=== PATIENT | male | born 1955 | race Caucasian/White ===

== ENCOUNTER → 2019-06-09 | Outpatient (CLI) | payer OTHER ==
[~2019-06-09] VITALS: Ht 167.6 cm; Wt 93.0 kg
[~2019-06-09] MED LIST: ASPIR 8181 MG PO; BACLOFEN 10MG T10 MG PO; BENICAR HCT 401 EACH PO; CENTRUM SILVER1 EAC2 PO; HYDROCODONE-AP1 EAC6 PO; IBUPROFEN 200200 M1 PO; IRON325 PO; LIPITOR 20 MG T20 M1 PO; LYRICA 75 MG CA75 MG PO; NEURONTIN 300300 M1 PO; NEXIUM40 MG PO; NORTRIPTYLINE H25 M3 PO; PERCOCET PO; PLAVIX 75 MG TA75 M1 PO; ROXICODONE5 MG PO; TOPROL XL25 MG PO; VIAGRA25 MG PO; ZETIA10 MG PO
[2019-06-09 14:12] VITALS: BP 116/75
--- NOTE | 2019-06-09 14:31 | NUR ---
Pain Clinic Assessment: 1. History of Osteoarthritis: NECK History of Rheumatoid Arthritis: Not Applicable 2. Height: 5 ft. 6 in. 167.6 cm. Weight: 205.0 lb. oz. 92.988 kg. Patient's BMI: 33.1 3. Vital Signs: BP: 116/75 Pulse: 89 Resp: 16 Temp: 02 Sat: 100 ECG Mon: 4. Pain Intensity: 6 5. Fall Risk: Dizziness: N Needs help standing or walking: N Fallen in the last 3 months: N Fall risk comments: 6. Patient on Blood Thinner: PLAVIX 7. History of Hypertension: Y 8. Opioid Therapy greater than 6 weeks: N Opiate Contract Signed: 9. Risk Assessment Tool Provided: LOW RISK 02/01 10. Functional Assessment Tool: 11. Recreational Drug Use: Never Drug Type: Tobacco Use: Current Every Day Smoker Tobacco Type: Cigarettes Amount or Packs/day: 1 1/2 How Many Years: 50 Alcohol Use: Yes Frequency: Monthly Quant: 1-2
--- NOTE | 2019-06-16 07:48 | HPC ---
[facility] [address] [address] PAIN MANAGEMENT CONSULTATION Name: HEIDE HEARD Room #: REG CLShahab Hattie.#: [id number] Admission: 06/09/19 ������������������ Attend Phys: Ferny Menendez DO Discharge: ������������������ Date of : 53 Report #: [id number] THIS REPORT FOR: //name// CC: JORGE LUIS Bustillos DATE OF SERVICE: 06/09/2019 REFERRING PHYSICIAN: Jorge Luis Diez D.O. in [place]. CHIEF COMPLAINT: Neck pain, bilateral upper extremity pain and paresthesias. HISTORY OF PRESENT ILLNESS: As you know, the patient is a 63-year-old male who reports longstanding history of neck pain, bilateral upper extremity pain with paresthesias. The patient indicates pain level of 6/10. He states his pain is burning, aching, numbness and tingling in sensation. It involves the neck and bilateral upper extremities. He has had symptoms for years. He denies new injury or trauma that may have led to symptom occurrence. He states the pain began somewhere in 2013. He has sought evaluation through Neurosurgery due to ongoing pain issues. He has undergone MRI of the cervical spine, which shows multilevel cervical spinal stenosis and neural foraminal stenosis. He was advised that surgical options would likely be necessary. He was seeking evaluation for options for treatment. He was referred to our clinic to discuss those options to address cervical radiculopathy. The patient indicates pain is steady, describes the pain as burning and aching, places current pain score 6/10, daily average at 6/10, worst pain has been is 9/10. The patient states that his pain is exacerbating with "turning too far." He is also noted it with lying down. His pain is improved with medications and this is only transiently. He has been referred to our service to discuss treatment options for cervical radiculopathy. PAST MEDICAL HISTORY: 1. Hypertension. 2. Coronary artery disease requiring chronic anticoagulation. 3. Degenerative joint disease. 4. Osteoarthritis. 5. Dyslipidemia. 6. Chronic cervical radiculopathy. PAST SURGICAL HISTORY: 1. Coronary artery stenting in 1999. 2. Appendectomy. 3. Eye surgery. [facility] [address] [place] [address] PAIN MANAGEMENT CONSULTATION Name: HEIDE HEARD [id number] Admission: 06/09/19 ������������������ Attend Phys: Ferny Menendez DO Discharge: ������������������ Date of : 53 Report #: [id number] SOCIAL HISTORY: The patient smokes 1-1/2 packs of tobacco per day, has done so for 50 years. He denies IV or illicit drug use. Admits to an occasional alcohol beverage. He is employed as an business information manager. He is working, not receiving workmen's compensation nor is trying to obtain disability benefits. He is not in litigation in regards to pain. He is unaccompanied today. REVIEW OF SYSTEMS: Positive for frequent and recurrent headaches, wearing corrective eyewear, cataracts, nosebleeds, cardiovascular disease, status post percutaneous stenting and chronic anticoagulation, frequent urination, nocturia, incontinence and dribbling to urine, sexual difficulty, numbness and tingling sensations, neck pain, bilateral upper extremity pain, right greater than left. All other review of systems negative per 12-point review of systems other than those listed in history of present illness. Pain impact score 24/70 indicating mild to moderate interference of daily activities secondary to pain. ALLERGIES: SULFA. CURRENT MEDICATIONS: Ferrous sulfate 325 mg per day, multivitamin 1 tab per day, Percocet 5/325 three times a day p.r.n. pain, olmesartan, hydrochlorothiazide 40/12.5 mg once a day, ibuprofen 200 mg 3 times a day, aspirin 81 mg per day, metoprolol 25 mg twice a day, atorvastatin 20 mg once a day, Plavix 75 mg per day. IMAGING: MRI cervical spine obtained on 05/02/2018 shows multilevel cervical spinal stenosis noted at C4-C5, C5-C6, C6-C7 and C7-T1. This is noted to be moderate to severe at all levels. There is also noted bilateral neural foraminal stenosis to moderate to severe at C4-C5, C5-C6, C6-C7. PQRS: The patient has osteoarthritic changes of the cervical spine, lumbar spine, bilateral knees, no rheumatoid arthritis. He is placing pain intensity at 6/10. He has not fallen last 3 months. He is on Plavix. He is treated for hypertension. He is on chronic opioids, but is reported as a low to moderate risk of opioid addiction potential. Pain impact score is 24/70 indicating mild to moderate interference of daily activities secondary to pain. PHYSICAL EXAMINATION: VITAL SIGNS: Blood pressure 116/75, pulse 89, respiratory rate 16 and unlabored. The patient is 100% on room air. Height 5 feet 6 inches tall, weight 205 pounds, BMI calculated 33.1. GENERAL: Well-developed, well-nourished, well-hydrated exogenously obese 63-year-old male appearing stated age, placing current pain score at 6/10. HEENT: Normocephalic, atraumatic. Pupils equal, round, reactive to light. Extraocular muscles are intact. Sclerae nonicteric without injection. [address] [place] [address] PAIN MANAGEMENT CONSULTATION Name: HEIDE HEARD Room #: REG [facility].#: [id number] Admission: 06/09/19 ������������������ Attend Phys: Ferny Menendez DO Discharge: ������������������ Date of : 53 Report #: [id number] NEUROLOGIC: Cranial nerves 2-12 grossly intact. Speech fluent. The patient deemed a fair historian. LUNGS: Clear, no wheeze, rhonchi, or rales. CARDIOVASCULAR: Regular. No appreciable gallop, no rub. ABDOMEN: Soft, obese, normoactive bowel sounds. EXTREMITIES: Show no clubbing, no cyanosis, and no edema. MUSCULOSKELETAL: Palpatory tenderness is noted over the paraspinal musculature of cervical spine. No spinous process tenderness. Cervical provocation testing is met with moderate restriction of motion bilaterally right greater than left. Cervical lateral flexion causes positive neuropathic symptoms on the right, negative on the left. Spurling's positive on the right, negative left. Upper extremity strength appears symmetrical 5/5. Muscle bulk and tone appears symmetrical. He is intact to light touch from C5-T1 dermatomes with only minimal light touch sensation changes on the C8 dermatome on the right when compared to left. ASSESSMENT: 1. Cervical radiculopathy. 2. Cervical spinal stenosis. 3. Neural foraminal stenosis of the cervical spine. 4. Displacement of cervical intervertebral disk with radiculopathy. 5. Cervical spondylosis with radiculopathy. 6. Chronic intractable pain. PLAN: 1. The patient has been referred to our service to discuss treatment options for what appears to be cervical radiculopathy. The patient has multiple levels of cervical spinal stenosis starting at the C4-C5 and continuing through the C7-T1 level. These are all classified as moderate to severe. He also has neural foraminal stenosis, most significant at C4-C5, C5-C6 and C6-C7 with those being classified as moderate to severe. He has been seen by Neurosurgery and I advised that surgical options will be ultimately necessary. He has chosen to seek further treatment and/or more conservative fashion in hopes of improving pain initially. If this is ineffective, then look forward to potential surgical options. He has been referred to our clinic by his PCP, Dr. Diez for evaluation. Based on today's physical exam and history, he provides the distribution of symptoms and the quality and intensity of pain along with the findings of his MRI. It does appear he is suffering from central canal and neural foraminal stenosis of the cervical spine causing cervical radiculopathy. We discussed the following treatment options for potential therapeutic benefit. The patient was advised that physical therapy, stretching exercises and strengthening techniques along with traction could be quite beneficial in alleviating some of his symptoms. Given the neural foraminal condition, traction would certainly assist in this issue. This will also potentially improve the patient's mobility and reduce his overall pain. We discussed [address] [address] PAIN MANAGEMENT CONSULTATION Name: HEIDE HEARD Room #: REG NARINDER Serrano#: [id number] Admission: 06/09/19 ������������������ Attend Phys: Ferny Menendez DO Discharge: ������������������ Date of : 54 Report #: [id number] medication management, increasing neuropathic pain medication, which based on the patient's description have all been suboptimal in therapeutic benefit. We discussed the lack of efficacy noted with opioids and do not recommend an opioid medication to be consistently utilized and the patient even indicates that he is not receiving much benefit with this therapy. We discussed cervical epidural injection under fluoroscopic guidance for which the patient was referred to our clinic and he has also requested surgical evaluation with a referral requested to Neurosurgery. After reviewing the risks and benefits of all the proposed treatment options and the lack of efficacy with other treatments, the patient has chosen to move forward with a cervical epidural injection and to make adjustments in his neuropathic pain medication. 2. The patient was advised that third alliance party payer restrictions require the authorization be obtained before the patient could be able to undergo cervical epidural injection. This authorization process could take anywhere from 4-7 working days, will begin that process immediately. Once we have achieved authorization, we will contact the patient. He will then need to schedule the appointment 7 days in advance of the approval date to be able to come off his Plavix for 7 days as per the [employer] guidelines. The patient will need to be off Plavix for 7 days. He will need to gain clearance from the prescribing physician to come off this medication safely. If he is able to come off the medication, we will then schedule the patient 1 week after our approval from his third alliance party payer to undergo the first in series of cervical epidural injections. We will keep the patient apprised of our progress of preauthorization. 3. The patient and I did discuss neuropathic medications. He has trialled gabapentin and Lyrica in the past. Based on the patient's recollection, he was on extremely low dose of gabapentin. Thus, subtherapeutic in its response. We recommend a rapid escalation of his medication to reach efficacious levels or side effects he cannot tolerate. We will trial the patient on a pack of Gralise starting at 300 mg dose, then titrate the medication as directed. He will be at 1800 mg in 15 days assuming he is not noticing improvement in symptoms at lower dosing or side effects he cannot tolerate. He was given a titration pack to take as directed. He was advised to be no side effects to medication and reduced to the dose prior to the side effects and continue the medication after contacting our clinic. If he notes no improvement and no side effects, continue de-escalation of medication. He was given a sample pack for the next 15 days. 4. The patient indicates today that he is taking oxycodone being provided by his primary care physician. He takes 3 oxycodone per day. When I asked whether or not this medication was beneficial, he reports that it does "take the edge off." We have noted that opioid medications have little or no benefit with neuropathic pain. The patient can certainly remain on this medication that he is receiving through his PCP and we recommend that he continued this treatment if necessary through his primary care physician. Given his lack of response to this medication, we would not recommend that he continue on this therapy and thus we will not be offering to take over this treatment course. Opioid medications as you are aware to be used for a very short period of time. It is [facility] [address] [place] [address] PAIN MANAGEMENT CONSULTATION Name: HEIDE HEARD Room #: REG CLI Maggie#: [id number] Admission: 06/09/19 ������������������ Attend Phys: Ferny Menendez DO Discharge: ������������������ Date of : 53 Report #: [id number] not indicated as a long-term treatment option. 5. The patient has requested and we have provided a referral to neurosurgery. The patient is being referred to Dr. Moose Contreras for cervical radiculopathy secondary to multiple sites of cervical spinal stenosis. The patient was given the referral, today he can contact Dr. Contreras's office to establish an appointment. 6. We will see the patient back in followup visit once we have achieved authorization for the patient to undergo a cervical epidural injection and he has been off his Plavix for 7 days to undergo the procedure. 7. We wish to thank the referring physician, Dr. Jorge Luis Diez for the referral of patient to our clinic. We will keep you apprised of his response to treatment as we address his cervical radiculopathy. Again, we wish to thank you for the opportunity to see the patient in consultation. ��������������������������������������������� <ELECTRONICALLY SIGNED> ���������������������������������������� By: Ferny Menendez DO ��������������������������������������������� 06/16/19 [id number] Ferny Menendez DO /nt
== END ==
LOC: PAIN 06:57
DX: M47.22 Other spondylosis with radiculopathy, cervical region (principal); M48.02 Spinal stenosis, cervical region; M50.10 Cervical disc disorder with radiculopathy, unspecified cervical region; G89.4 Chronic pain syndrome; Z79.899 Other long term (current) drug therapy

== ENCOUNTER → 2019-06-30 | Outpatient (CLI) | payer OTHER ==
[~2019-06-30] VITALS: Ht 167.6 cm; Wt 95.2 kg
--- NOTE | ~2019-06-30 | HPC ---
[facility] [place] [address] PAIN MANAGEMENT CONSULTATION Name: HEIDE HEARD Room #: REG NARINDER Maggie#: [id number] Admission: 06/30/19 ������������������ Attend Phys: Ferny Menendez DO Discharge: ������������������ Date of : 53 Report #: [id number] THIS REPORT FOR: //name// CC: Elise Ansari DATE OF SERVICE: 06/30/2019 REFERRING PHYSICIAN: Elise Diez DO CHIEF COMPLAINT: Neck pain, bilateral upper extremity pain with paresthesias. HISTORY OF PRESENT ILLNESS: As you know, the patient is a 63-year-old male who reports longstanding history of neck pain, bilateral upper extremity pain with paresthesias. He was seen in consultation per the request of Dr. Diez on 06/09/2019, diagnosed with cervical radiculopathy, cervical spinal stenosis, neural foraminal stenosis of the cervical spine, displacement of a cervical intervertebral disk with radicular symptoms, cervical spondylosis with radiculopathy. We discussed at that visit the treatment options available and he chose to undergo a cervical epidural injection under fluoroscopic guidance for which he returns today having been off his Plavix for 7 days after receiving authorization to be able to come off the medication from his primary care physician and sales recruiter. He returns with a pain level of 6-7/10 to undergo cervical epidural injection under fluoroscopic guidance. ALLERGIES: SULFA and ALOE VERA. CURRENT MEDICATIONS: Ferrous sulfate, multivitamin, oxycodone, olmesartan, hydrochlorothiazide, ibuprofen, aspirin, metoprolol, atorvastatin, Plavix. SOCIAL HISTORY: The patient smokes 1-1/2 packs of tobacco per day and has done so for 50 years. He denies IV or illicit drug use, admits to alcohol consumption on an every other day basis. He is working, not receiving workmen's compensation, unaccompanied today. IMAGING: No new imaging available. PHYSICAL EXAMINATION: VITAL SIGNS: Blood pressure 110/72, pulse 72 and respiratory rate 18 and unlabored. The patient is 97% on room air. Height 5 feet 6 inches tall, weight 209.8 pounds, BMI calculated at 33.9. GENERAL: Well-developed, well-nourished, well-hydrated exogenously obese 63-year-old male appearing stated age, pain is rated today at 6-7/10. HEENT: Normocephalic, atraumatic. Pupils equal, round, reactive to light. EXTREMITIES: Show no clubbing, no cyanosis, and no edema. [address] [address] PAIN MANAGEMENT CONSULTATION Name: HEIDE HEARD Room #: REG CL Hattie.#: [id number] Admission: 06/30/19 ������������������ Attend Phys: Ferny Menendez DO Discharge: ������������������ Date of : 53 Report #: [id number] MUSCULOSKELETAL: Upper extremity strength appears symmetrical 5/5. He remains positive for Spurling's test on the right, negative left. Muscle bulk and tone appears equal and symmetrical in comparing left upper extremity to right. Cervical provocation testing is met with moderate restriction of motion bilaterally, right greater than left. ASSESSMENT: 1. Cervical radiculopathy. 2. Cervical spinal stenosis. 3. Neural foraminal stenosis of the cervical spine. 4. Displacement of cervical intervertebral disk with radiculopathy. 5. Cervical spondylosis with radiculopathy. 6. Chronic intractable pain. PLAN: 1. The patient has returned today in followup visit to undergo the first in a series of cervical epidural injections under fluoroscopic guidance. He has received clearance from his PCP and sales recruiter to come off the Plavix in preparation for today's procedure. He has been off the Plavix for the past 7 days. The patient and I discussed today the risks and benefits of a cervical epidural injection. These risks include but are not necessarily limited to bleeding, bruising, infection, worsening pain, no relief of pain, also risk of temporary or permanent muscle weakness, temporary or permanent nerve damage, possible paralysis, post-dural puncture headache and , the patient states he understood and wished to proceed. 2. No medication changes made at today's visit. The patient will continue current medical therapy as previously prescribed. 3. We will see the patient back in followup visit for next in the series of cervical epidural injections under fluoroscopic guidance and to discuss medication management if necessary. PROCEDURE NOTE DESCRIPTION OF PROCEDURE: Cervical epidural steroid injection under fluoroscopic guidance. This is the first procedure of the first series that the patient is undergoing. After obtaining written consent, the patient was taken back to the fluoroscopy suite and placed in a prone position with separate pillows under chest and forehead to decrease cervical lordosis. The skin overlying the cervical area was prepped and draped in an aseptic fashion. The C7-T1 vertebral interspace was identified by AP fluoroscopy. The skin and subcutaneous tissue overlying the target site of injection was anesthetized using 3 mL of 1% lidocaine. A 20-guarge 3-1/2-inch Tuohy needle was advanced under fluoroscopic guidance [address] [address] PAIN MANAGEMENT CONSULTATION Name: HEIDE HEARD Room #: REG CLI [facility]#: [id number] Admission: 06/30/19 ������������������ Attend Phys: Ferny Menendez DO Discharge: ������������������ Date of : 53 Report #: [id number] toward the epidural space using a midline approach. The epidural space was identified using a loss of resistance to air technique. After negative aspiration for heme or cerebrospinal fluid, a total of 1 mL of Omnipaque was injected. A cervical epidurogram was confirmed using AP and oblique fluoroscopy. After negative aspiration for heme or cerebrospinal fluid, 5 mL of a solution containing 2 mL, 40 mg per mL, 80 mg total triamcinolone, 3 mL of lidocaine 1% was injected in increments. Contrast spread was noted from posterior epidural space. The needle was then retracted approximately prison and the needle track was flushed with 1 mL of 1% lidocaine. There were no apparent new sensory deficits in the upper extremities present following the procedure. A sterile bandage was placed over the injection site. The heart rate, pulse oximetry and blood pressure were continuously monitored after the procedure. There were no apparent complications. The patient tolerated the procedure well and was carefully escorted in the recovery room in stable condition. After meeting discharge criteria, the patient was discharged home. ��������������������������������������������� ���������������������������������������� By: ��������������������������������������������� [id number] Ferny Menendez DO /nt
[2019-06-30 12:53] VITALS: BP 110/72
--- NOTE | 2019-06-30 13:01 | NUR ---
Pain Clinic Assessment: 1. History of Osteoarthritis: NECK History of Rheumatoid Arthritis: Not Applicable 2. Height: 5 ft. 6 in. 167.6 cm. Weight: 209.8 lb. oz. 95.165 kg. Patient's BMI: 33.9 3. Vital Signs: BP: 110/72 Pulse: 72 Resp: 18 Temp: 02 Sat: 97 ECG Mon: 4. Pain Intensity: 6-7 5. Fall Risk: Dizziness: N Needs help standing or walking: N Fallen in the last 3 months: N Fall risk comments: 6. Patient on Blood Thinner: PLAVIX 7. History of Hypertension: Y 8. Opioid Therapy greater than 6 weeks: N Opiate Contract Signed: 9. Risk Assessment Tool Provided: LOW RISK 02/01 10. Functional Assessment Tool: 11. Recreational Drug Use: Never Drug Type: Tobacco Use: Current Every Day Smoker Tobacco Type: Cigarettes Amount or Packs/day: 1.5 How Many Years: 50 Alcohol Use: Yes Frequency: Weekly Quant: 3
== END | disposition home or self-care (01) ==
LOC: PAIN 06:55
DX: M50.10 Cervical disc disorder with radiculopathy, unspecified cervical region (principal); M48.02 Spinal stenosis, cervical region; M47.22 Other spondylosis with radiculopathy, cervical region; G89.29 Other chronic pain; F17.210 Nicotine dependence, cigarettes, uncomplicated; Z88.2 Allergy status to sulfonamides; Z88.8 Allergy status to other drugs, medicaments and biological substances; Z79.899 Other long term (current) drug therapy; Z98.890 Other specified postprocedural states

== ENCOUNTER → 2019-07-21 | Outpatient (CLI) | payer OTHER ==
[~2019-07-21] VITALS: Ht 167.6 cm; Wt 94.6 kg
[2019-07-21 12:41] VITALS: BP 116/70
--- NOTE | 2019-07-21 12:56 | NUR ---
Pain Clinic Assessment: 1. History of Osteoarthritis: NECK History of Rheumatoid Arthritis: Not Applicable 2. Height: 5 ft. 6 in. 167.6 cm. Weight: 208.6 lb. oz. 94.620 kg. Patient's BMI: 33.7 3. Vital Signs: BP: 116/70 Pulse: 86 Resp: 16 Temp: 02 Sat: 95 ECG Mon: 4. Pain Intensity: 5 5. Fall Risk: Dizziness: N Needs help standing or walking: N Fallen in the last 3 months: N Fall risk comments: 6. Patient on Blood Thinner: PLAVIX 7. History of Hypertension: Y 8. Opioid Therapy greater than 6 weeks: N Opiate Contract Signed: 9. Risk Assessment Tool Provided: LOW RISK 02/01 10. Functional Assessment Tool: 11. Recreational Drug Use: Never Drug Type: Tobacco Use: Current Every Day Smoker Tobacco Type: Cigarettes Amount or Packs/day: 1.5 How Many Years: 50 Alcohol Use: Yes Frequency: Weekly Quant: 3
--- NOTE | 2019-07-22 07:46 | HPC ---
[facility] [address] [place] [address] PAIN MANAGEMENT CONSULTATION Name: HEIDE HEARD Room #: REG Shahab Serrano#: [id number] Admission: 07/21/19 Attend Phys: Ferny Menendez DO Discharge: Date of : 53 Report #: [id number] THIS REPORT FOR: //name// CC: Elise Menendez DATE OF SERVICE: 07/21/2019 REFERRING PHYSICIAN: CHIEF COMPLAINT: Neck pain, bilateral lower extremity pain. HISTORY OF PRESENT ILLNESS: As you know, the patient is a 63-year-old male who reports longstanding history of neck pain, bilateral upper extremity pain with paresthesias. He was seen in consultation per the request of Dr. Diez on 06/09/2019, diagnosed with cervical radiculopathy secondary to cervical spinal stenosis. He underwent a cervical epidural injection under fluoroscopic guidance at the second visit with good and prolonged benefit. He is now placing pain no greater than 5/10. He states the pain is burning, aching, numbness and tingling when describing symptoms. He reports 60% improvement in overall symptoms with the epidural injection. He returns today requesting refill of his Percocet medication. He is currently is his Plavix, which precludes us from providing next in the series of epidural injections. He has requested refill of medications at this juncture and reports no side effects. He returns for refill of medications for this next 2 months. ALLERGIES: SULFA and ALOE VERA. CURRENT MEDICATIONS: Ferrous sulfate, multivitamin, oxycodone, olmesartan, hydrochlorothiazide, ibuprofen, aspirin, metoprolol, atorvastatin and Plavix. SOCIAL HISTORY: The patient continues to smoke 1-1/2 packs of tobacco per day and has done so for 50+ years. Denies IV or illicit drug use. Admits to alcohol consumption on a daily basis. He is working, not receiving workmen's compensation, unaccompanied today. IMAGING: No new imaging available. PHYSICAL EXAMINATION: VITAL SIGNS: Blood pressure 116/70, pulse 86, respiratory rate 16 and unlabored. The patient is 95% on room air. Height 5 feet 6 inches tall, weight 280 pounds, BMI calculated 33.7. GENERAL: Well-developed, well-nourished, well-hydrated exogenously obese 63-year-old male appearing stated age, pain is rated at 5/10. HEENT: Normocephalic, atraumatic. Pupils equal, round, reactive to light. Extraocular muscles are intact. [address] [address] PAIN MANAGEMENT CONSULTATION Name: HEIDE HEARD Room #: REG [facility].#: [id number] Admission: 07/21/19 Attend Phys: Ferny Menendez DO Discharge: Date of : 53 Report #: [id number] EXTREMITIES: Show no clubbing, no cyanosis, and no edema. MUSCULOSKELETAL: Upper extremity strength is symmetrical 5/5, intact to light touch from C5-T1 dermatomes. Spurling's test is positive. Muscle bulk and tone symmetrical in upper extremities. ASSESSMENT: 1. Cervical radiculopathy. 2. Spinal stenosis of the cervical spine. 3. Neural foraminal stenosis of the cervical spine. 4. Displacement of a cervical intervertebral disk with radiculopathy. 5. Cervical spondylosis with radiculopathy. 6. Chronic intractable pain. PLAN: 1. The patient returns today in followup visit having noted a 60% improvement in overall pain with a cervical epidural injection provided at last visit. At this time, the patient wishes to delay next in the series of cervical epidural injections despite the elevated pain level of 5/10 today. The patient has not stopped his Plavix in preparation for today's procedure and wishes to delay potentially end of August before undergoing the next in the series. We will make ourselves available for that date, so when the patient is ready to undergo the procedure we can provide that at that time. If his pain does return, he is to stop his Plavix in preparation for the procedure. He will have to be off the Plavix for 7 days. This needs to be cleared through the prescribing physician and letter needs to be sent to our clinic indicating as such. 2. We have agreed to continue the patient on medication while he is undergoing interventional treatments. Once we have completed our treatment options, he will be returning to his PCP for continuation of medication management. We have provided the patient with the following prescriptions today. We reviewed the fact that opiate medications are being used to provide analgesia adequate to support activities of daily living, not attempting to achieve a specific pain score on the 0-10 Visual Analog Scale. The current opiate medications are providing sufficient analgesia to allow the patient to participate in activities of daily living. The patient is not exhibiting any aberrant behavior suggestive of drug diversion. The patient is not having any adverse reactions to medications. The patient is not suffering from daytime somnolence or mental acuity changes. The patient is managing opiate-induced constipation with appropriate [id number] agents and dietary considerations. The patient was counseled on concern for caution with operating a motor vehicle while using opiate medications. A physical exam was performed and the patient's functional status was evaluated. All patients with back pain were advised against the bed rest greater than 4 days and were advised to return to normal activities. Pain score assessment was noted and the treatment plan was reviewed with the patient. All current [facility] [address] [place] [address] PAIN MANAGEMENT CONSULTATION Name: HEIDE HEARD Room #: REG TONIAShahab Kuhn.#: [id number] Admission: 07/21/19 Attend Phys: Ferny Menendez DO Discharge: Date of : 53 Report #: [id number] medications, both prescribed and OTC were reviewed and reconciled on the electronic medical record. Tobacco screening was accomplished and smoking cessation was advised when indicated. BMI was noted and diet/exercise modification was recommended for all patients following outside normal parameters. I reviewed with the patient today their responsibilities to safeguard prescription medications, reviewed their responsibility to utilize medications only as prescribed by the physician. They are to seek and receive pain medications only from 1 physician group ( [facility]). They are to use 1 pharmacy and keep the clinic informed if they change pharmacies. Their responsibilities include making followup visits in a timely fashion and to avoid abrupt discontinuation of medication usage. Their responsibilities further include bringing their medications (bottles from the pharmacy with residual pills) to the visit for possible confirmation of pill counts and the patient understands it is their responsibility to submit to random drug screens to ensure both that the medications prescribed are present, and that no other controlled substances are present. All prescriptions provided today were generated electronically. I reviewed the patient's PDMP from both [place] and [place]. It does show the patient has filled her medications provided by her primary care physician, Dr. Elise Diez, the most recent prescription on 06/19/2019. He appears to be filling the medications on a monthly basis and appears to be appropriate. 3. The patient was provided a prescription of Percocet 5/325 one tab p.o. q. 8 hours p.r.n. for pain. I have given the patient #90 tablets, releasing today and 4 weeks from today, 2 months' worth of medication. Again, we have discussed with the patient that we are willing to write these medications while he is receiving interventional treatments through our services. Once those have been completed, we will be returning his care to his PCP to continue that activity. These medications were started by his primary care physician and can be continued by that physician once we have completed our treatment process. 4. We will see the patient back in followup visit on an as needed basis for possible next in the series of cervical epidural injections. <ELECTRONICALLY SIGNED> By: Ferny Menendez DO 07/22/19 0746 [id number] Ferny Menendez DO /nt
== END ==
LOC: PAIN 06:55
DX: M48.02 Spinal stenosis, cervical region (principal); M47.22 Other spondylosis with radiculopathy, cervical region; M50.10 Cervical disc disorder with radiculopathy, unspecified cervical region; M79.604 Pain in right leg; M79.605 Pain in left leg

== ENCOUNTER → 2019-08-04 | Outpatient (CLI) | payer OTHER ==
[~2019-08-04] VITALS: Ht 167.6 cm; Wt 95.3 kg
[2019-08-04 11:13] VITALS: BP 106/70
--- NOTE | 2019-08-04 11:28 | NUR ---
Pain Clinic Assessment: 1. History of Osteoarthritis: NECK History of Rheumatoid Arthritis: Not Applicable 2. Height: 5 ft. 6 in. 167.6 cm. Weight: 210.0 lb. oz. 95.256 kg. Patient's BMI: 33.9 3. Vital Signs: BP: 106/70 Pulse: 80 Resp: 16 Temp: 02 Sat: 97 ECG Mon: 4. Pain Intensity: 5 5. Fall Risk: Dizziness: N Needs help standing or walking: N Fallen in the last 3 months: N Fall risk comments: 6. Patient on Blood Thinner: PLAVIX 7. History of Hypertension: Y 8. Opioid Therapy greater than 6 weeks: N Opiate Contract Signed: 9. Risk Assessment Tool Provided: LOW RISK 3 10. Functional Assessment Tool: 11. Recreational Drug Use: Never Drug Type: Tobacco Use: Current Every Day Smoker Tobacco Type: Cigarettes Amount or Packs/day: 1 1/2 pack How Many Years: 50 Alcohol Use: Yes Frequency: Special Occasions Quant: 1
== END | disposition home or self-care (01) ==
LOC: PAIN 07:04
DX: M54.12 Radiculopathy, cervical region (principal); G89.29 Other chronic pain; Z88.2 Allergy status to sulfonamides; Z79.82 Long term (current) use of aspirin; Z79.899 Other long term (current) drug therapy

== ENCOUNTER → 2019-09-15 | Outpatient (CLI) | payer OTHER ==
[~2019-09-15] VITALS: Ht 167.6 cm; Wt 93.9 kg
[2019-09-15 12:35] VITALS: BP 133/75
--- NOTE | 2019-09-15 12:41 | NUR ---
Pain Clinic Assessment: 1. History of Osteoarthritis: NECK HANDS History of Rheumatoid Arthritis: DENIES 2. Height: 5 ft. 6 in. 167.6 cm. Weight: 207.0 lb. oz. 93.895 kg. Patient's BMI: 33.4 3. Vital Signs: BP: 133/75 Pulse: 75 Resp: 13 Temp: 02 Sat: 96 ECG Mon: 4. Pain Intensity: 5 5. Fall Risk: Dizziness: N Needs help standing or walking: N Fallen in the last 3 months: N Fall risk comments: 6. Patient on Blood Thinner: PLAVIX 7. History of Hypertension: Y 8. Opioid Therapy greater than 6 weeks: N Opiate Contract Signed: 9. Risk Assessment Tool Provided: LOW RISK 3 10. Functional Assessment Tool: 11. Recreational Drug Use: Never Drug Type: Tobacco Use: Current Every Day Smoker Tobacco Type: Cigarettes Amount or Packs/day: 1.5 How Many Years: 50 Alcohol Use: Yes Frequency: Monthly Quant:
--- NOTE | 2019-09-22 08:01 | HPC ---
[facility] [address] [place] [address] PAIN MANAGEMENT CONSULTATION Name: HEIDE HEARD Room #: REG CLShahab Hattie.#: [id number] Admission: 09/15/19 Attend Phys: Ferny Menendez DO Discharge: Date of : 53 Report #: [id number] THIS REPORT FOR: //name// CC: Elise Ansari DATE OF SERVICE: 09/15/2019 REFERRING PHYSICIAN: Elise Diez DO CHIEF COMPLAINT: Neck pain, bilateral upper extremity pain with paresthesias. HISTORY OF PRESENT ILLNESS: As you know, the patient is a 63-year-old male who suffers from longstanding chronic neck pain, upper extremity pain with paresthesias. He has undergone cervical epidural injections in July and August, with reported improvement in symptoms, but unfortunately, his symptoms continued to return. He is reporting previous epidural injection gave 60% improvement in overall pain, but unfortunately, the relief was only 3 weeks in its effects. He returns today in followup visit to undergo the last in this series of epidural injections. His next available injection would be 02/02/2020. He returns requesting a cervical epidural injection and receive 1 final refill of his opioid medication for the 6 months. He will be returning to his primary care physician for continuation of medication management to return in January for the next in the series of epidural injections. ALLERGIES: SULFA and ALOE VERA. CURRENT MEDICATIONS: Ferrous sulfate, multivitamin, olmesartan/hydrochlorothiazide, ibuprofen, aspirin, metoprolol, atorvastatin, oxycodone and Plavix. SOCIAL HISTORY: The patient continues to smoke 1-1/2 packs of tobacco per day and has done so for 50+ years. Denies IV or illicit drug use. Admits to an occasional alcohol beverage. He is working, not receiving workmen's compensation, unaccompanied today. IMAGING: No new imaging available. PHYSICAL EXAMINATION: VITAL SIGNS: Blood pressure 133/75, pulse 75, respiratory rate 13 and unlabored. The patient is 96% on room air. Height 5 feet 6 inches tall, weight 207 pounds, BMI calculated 33.4. GENERAL: Well-developed, well-nourished, well-hydrated 63-year-old male appearing stated age, pain is rated at 5/10. HEENT: Normocephalic, atraumatic. Pupils equal, round, reactive to light. [facility] [address] [place] [address] PAIN MANAGEMENT CONSULTATION Name: HEIDE HEARD Room #: REG CLI [facility]#: [id number] Admission: 09/15/19 Attend Phys: Ferny Menendez DO Discharge: Date of : 53 Report #: [id number] EXTREMITIES: Show no clubbing, no cyanosis, no edema. MUSCULOSKELETAL: Upper extremity strength is symmetrical 5/5. He is intact to light touch from C5-T1 dermatomes. Spurling's test remains positive. There is palpatory tenderness noted over the paraspinal musculature of the cervical spine. No spinous process tenderness. Muscle bulk and tone equal and symmetrical in the upper extremities. ASSESSMENT: 1. Cervical radiculopathy. 2. Spinal stenosis of the cervical spine. 3. Neural foraminal stenosis of the cervical spine. 4. Displacement of cervical intervertebral disk with radiculopathy. 5. Cervical spondylosis with radiculopathy. 6. Chronic intractable pain. PLAN: 1. The patient returns today in followup visit requesting to undergo next in the series of epidural injections to address cervical radiculopathy. The patient is reporting good efficacy of about 60% improvement in overall pain, but unfortunately, this lasted about 3 weeks. We have advised the patient that he has a limit of 3 epidural injections in a 6-month period, 6 in a year. This will be the third in the series of epidural injections. The next available injection would not be until 01/2020. The patient was made aware of this today. He states he understood, but wished to proceed with the cervical epidural injection. He was advised risks and benefits of procedure, states he understood and wished to proceed. 3. The patient has requested a final refill of his oxycodone for which he takes Percocet 5/325 three times a day for pain control. He was given #90 tablets, no refills. The patient was advised to utilize the medication as directed. He is not to utilize the medication prophylactically. Prescription was provided, with no refills. 4. We will see the patient back in followup visit in 01/2020 for the next in the series of epidural injections. <ELECTRONICALLY SIGNED> By: Ferny Menendez DO 09/22/19 0801 [id number] Ferny Menendez DO /nt
--- NOTE | 2019-09-22 08:01 | P ---
[facility] [place] [address] PROCEDURE REPORT Name: HEIDE HEARD [facility] [id number] Admission: 09/15/19 Attend Phys: Ferny Menendez DO Discharge: Date of : 53 Report #: [id number] THIS REPORT FOR: //name// CC: Elise Menendez DATE OF SERVICE: 09/15/2019 PROCEDURE NOTE DESCRIPTION OF PROCEDURE: C7-T1 cervical epidural steroid injection under fluoroscopic guidance. This is the third procedure of the first series that the patient is undergoing. After obtaining written consent, the patient was taken back to the fluoroscopy suite and placed in a prone position with separate pillows under chest and forehead to decrease cervical lordosis. The skin overlying the cervical area was prepped and draped in an aseptic fashion. The C7-T1 vertebral interspace was identified by AP fluoroscopy. The skin and subcutaneous tissue overlying the target site of injection was anesthetized using 3 mL of 1% lidocaine. A 20-gauge 3-1/2-inch Tuohy needle was advanced under fluoroscopic guidance toward the epidural space using a midline approach. The epidural space was identified using a loss of resistance to air technique. After negative aspiration for heme or cerebrospinal fluid, a total of 1 mL of Omnipaque was injected. A cervical epidurogram was confirmed using AP and oblique fluoroscopy. After negative aspiration for heme or cerebrospinal fluid, 5 mL of a solution containing 2 mL 40 mg per mL, 80 mg total triamcinolone along with 3 mL of lidocaine 1% was injected in increments. Contrast spread was noted from posterior epidural space. The needle was then retracted approximately snf and the needle track was flushed with 1 mL of 1% lidocaine. There were no apparent new sensory deficits in the upper extremities present following the procedure. A sterile bandage was placed over the injection site. The heart rate, pulse oximetry and blood pressure were continuously monitored after the procedure. There were no apparent complications. The patient tolerated the procedure well and was carefully escorted in the recovery room in stable condition. After meeting discharge criteria, the patient was discharged home. <ELECTRONICALLY SIGNED> By: Ferny Menendez DO 09/22/19 0801 [id number] Ferny Menendez DO /nt
== END | disposition home or self-care (01) ==
LOC: PAIN 06:55
DX: M50.10 Cervical disc disorder with radiculopathy, unspecified cervical region (principal); M48.02 Spinal stenosis, cervical region; M47.22 Other spondylosis with radiculopathy, cervical region; G89.29 Other chronic pain; F17.210 Nicotine dependence, cigarettes, uncomplicated; Z88.2 Allergy status to sulfonamides; Z79.82 Long term (current) use of aspirin; Z79.891 Long term (current) use of opiate analgesic; Z98.890 Other specified postprocedural states

== ENCOUNTER → 2019-10-27 | Outpatient (CLI) | payer OTHER ==
[~2019-10-27] VITALS: Ht 167.6 cm; Wt 94.7 kg
[~2019-10-27] MED LIST changes: +NABUMETONE 500500 M1 PO
[2019-10-27 13:51] VITALS: BP 116/75
--- NOTE | 2019-10-27 14:05 | NUR ---
Pain Clinic Assessment: 1. History of Osteoarthritis: NECK HANDS History of Rheumatoid Arthritis: DENIES 2. Height: 5 ft. 6 in. 167.6 cm. Weight: 208.8 lb. oz. 94.711 kg. Patient's BMI: 33.7 3. Vital Signs: BP: 116/75 Pulse: 71 Resp: 14 Temp: 02 Sat: 97 ECG Mon: 4. Pain Intensity: 3 5. Fall Risk: Dizziness: N Needs help standing or walking: N Fallen in the last 3 months: N Fall risk comments: 6. Patient on Blood Thinner: PLAVIX 7. History of Hypertension: Y 8. Opioid Therapy greater than 6 weeks: Y Opiate Contract Signed: 9. Risk Assessment Tool Provided: LOW RISK 3 10. Functional Assessment Tool: 11. Recreational Drug Use: Never Drug Type: Tobacco Use: Current Every Day Smoker Tobacco Type: Amount or Packs/day: 1.5 How Many Years: Alcohol Use: Yes Frequency: Monthly Quant:
--- NOTE | 2019-10-28 07:47 | HPC ---
[facility] [place] [address] PAIN MANAGEMENT CONSULTATION Name: HEIDE HEARD Room #: REG CLShahab Hattie.#: [id number] Admission: 10/27/19 Attend Phys: Ferny Menendez DO Discharge: Date of : 53 Report #: [id number] THIS REPORT FOR: //name// CC: Elise Ansari DATE OF SERVICE: 10/27/2019 REFERRING PHYSICIAN: Dr. Elise Diez. CHIEF COMPLAINT: Neck pain, bilateral upper extremity pain with paresthesias. HISTORY OF PRESENT ILLNESS: As you know, the patient is a 63-year-old male suffering from longstanding chronic neck pain, upper extremity pain with paresthesias. He has undergone cervical epidural injections x 3 with transient improvement in symptoms. Unfortunately, his symptoms have begun to return. He continues to take Percocet 5/325 up to 3 times a day for pain control. He has run out of his medications. He returns today in followup visit requesting refill of this medication. He understands that he has had to be seen on a monthly basis to receive these medications as these are controlled substances and tight control must be maintained to confirm the need for the medication as well as appropriate taking of this therapy. He returns today in followup visit requesting refill on medications. He is placing his current pain score 3/10. ALLERGIES: SULFA, ALOE VERA. CURRENT MEDICATIONS: Ferrous sulfate, multivitamin, olmesartan, hydrochlorothiazide, ibuprofen, aspirin, metoprolol, atorvastatin, oxycodone and Plavix. SOCIAL HISTORY: The patient continues to smoke 1-1/2 packs of tobacco per day and has done so for 50+ years. Denies IV or illicit drug use. Admits occasional alcohol beverage. He is working, not receiving workmen's compensation, unaccompanied today. IMAGING: No new imaging available. PHYSICAL EXAMINATION: VITAL SIGNS: Blood pressure 116/75, pulse 71, respiratory rate 14 and unlabored. The patient is 97% on room air. Height 5 feet 6 inches tall, weight 208.8 pounds, BMI calculated 33.7. GENERAL: Well-developed, well-nourished, well-hydrated 63-year-old male appearing stated age, smells strongly of tobacco smoke, placing current pain score at 3/10. HEENT: Normocephalic, atraumatic. Pupils equal, round and reactive to light. [facility] [address] [place] [address] PAIN MANAGEMENT CONSULTATION Name: HEIDE HEARD [facility] [id number] Admission: 10/27/19 Attend Phys: Ferny Menendez DO Discharge: Date of : 53 Report #: [id number] EXTREMITIES: Show no clubbing, no cyanosis and no edema. MUSCULOSKELETAL: Upper extremity strength remains symmetrical 5/5. Muscle bulk and tone equal and symmetrical in comparing left upper extremity to right. Spurling's test positive. ASSESSMENT: 1. Cervical radiculopathy. 2. Spinal stenosis of the cervical spine. 3. Neural foraminal stenosis of the cervical spine. 4. Displacement of cervical intervertebral disk with radiculopathy. 5. Cervical spondylosis with radiculopathy. 6. Chronic intractable pain. 7. Opioid dependency. PLAN: 1. The patient returns today in followup visit requesting refill on his opioid medications. He has been on his medications for nearly a week. We discussed with the patient that opioid medications are used on an as needed basis, but does require a consistent to return for refill of medications. These medications are controlled and require prescriptions to be obtained on a monthly basis. The patient and I had this discussion at our first visit and every visit prior indicating that these medications are provided as a benefit for pain control. They are not for long-term treatment option recommended, but it is providing some benefit at this time. He will need to be seen on a monthly basis to receive refills of these therapies. 2. We have reviewed the patient's PDMP. There are no concerning entries. His most recent prescription of opioid medication was provided on 09/21/2019 where he filled at a local [facility] utilizing his commercial insurance. There are no concerning entries in the record to date. 3. We will see the patient back in followup visit for medication management. 4. We reviewed the fact that opiate medications are being used to provide analgesia adequate to support activities of daily living, not attempting to achieve a specific pain score on the 0-10 Visual Analog Scale. The current opiate medications are providing sufficient analgesia to allow the patient to participate in activities of daily living. The patient is not exhibiting any aberrant behavior suggestive of drug diversion. The patient is not having any adverse reactions to medications. The patient is not suffering from daytime somnolence or mental acuity changes. The patient is managing opiate-induced constipation with appropriate azya-hsz-kmqixhw agents and dietary considerations. The patient was counseled on concern for caution with operating a motor vehicle while using opiate medications. A physical exam was performed and the patient's functional status was evaluated. All patients with back pain were advised against the bed rest greater than 4 days and were advised to return to normal activities. Pain score assessment was noted and the treatment plan was reviewed with the patient. All current [address] [address] PAIN MANAGEMENT CONSULTATION Name: HEIDE HEARD Room #: REG [facility].#: [id number] Admission: 10/27/19 Attend Phys: Ferny Menendez DO Discharge: Date of : 53 Report #: [id number] medications, both prescribed and OTC were reviewed and reconciled on the electronic medical record. Tobacco screening was accomplished and smoking cessation was advised when indicated. BMI was noted and diet/exercise modification was recommended for all patients following outside normal parameters. I reviewed with the patient today their responsibilities to safeguard prescription medications, reviewed their responsibility to utilize medications only as prescribed by the physician. They are to seek and receive pain medications only from 1 physician group ( [facility]). They are to use 1 pharmacy and keep the clinic informed if they change pharmacies. Their responsibilities include making followup visits in a timely fashion and to avoid abrupt discontinuation of medication usage. Their responsibilities further include bringing their medications (bottles from the pharmacy with residual pills) to the visit for possible confirmation of pill counts and the patient understands it is their responsibility to submit to random drug screens to ensure both that the medications prescribed are present, and that no other controlled substances are present. All prescriptions provided today were generated electronically. 5. The patient was provided prescription, oxycodone/acetaminophen 5/325 one tab p.o. q. 8 hours p.r.n. for pain. I have given the patient #90 tablets, no refills. 6. We will see the patient back in followup visit in 1 month. <ELECTRONICALLY SIGNED> By: Ferny Menendez DO 10/28/19 [id number] Ferny Menendez DO /nt
== END ==
LOC: PAIN 06:52
DX: M47.22 Other spondylosis with radiculopathy, cervical region (principal); M48.02 Spinal stenosis, cervical region; M50.10 Cervical disc disorder with radiculopathy, unspecified cervical region; G89.4 Chronic pain syndrome; F11.20 Opioid dependence, uncomplicated

== ENCOUNTER → 2019-11-17 | Outpatient (CLI) | payer OTHER ==
[~2019-11-17] VITALS: Ht 167.6 cm; Wt 99.0 kg
[2019-11-17 10:49] VITALS: BP 106/66
--- NOTE | 2019-11-17 10:57 | NUR ---
Pain Clinic Assessment: 1. History of Osteoarthritis: NECK HANDS History of Rheumatoid Arthritis: DENIES 2. Height: 5 ft. 6 in. 167.6 cm. Weight: 218.2 lb. oz. 98.975 kg. Patient's BMI: 35.2 3. Vital Signs: BP: 106/66 Pulse: 72 Resp: 16 Temp: 02 Sat: 97 ECG Mon: 4. Pain Intensity: 3 5. Fall Risk: Dizziness: N Needs help standing or walking: N Fallen in the last 3 months: N Fall risk comments: 6. Patient on Blood Thinner: PLAVIX 7. History of Hypertension: Y 8. Opioid Therapy greater than 6 weeks: Y Opiate Contract Signed: 9. Risk Assessment Tool Provided: LOW RISK 3 10. Functional Assessment Tool: 11. Recreational Drug Use: Never Drug Type: Tobacco Use: Current Every Day Smoker Tobacco Type: Cigarettes Amount or Packs/day: 1.5 How Many Years: 50 Alcohol Use: Yes Frequency: Monthly Quant: 1
--- NOTE | 2019-11-30 10:05 | HPC ---
[facility] [address] [place] [address] PAIN MANAGEMENT CONSULTATION Name: HEIDE HEARD Room #: REG NARINDER Hattie.#: [id number] Admission: 11/17/19 Attend Phys: Ferny Menendez DO Discharge: Date of : 53 Report #: [id number] THIS REPORT FOR: //name// CC: JORGE LUIS Kahn DATE OF SERVICE: 11/17/2019 CHIEF COMPLAINT: Neck pain, bilateral upper extremity pain with paresthesias. HISTORY OF PRESENT ILLNESS: As you know, the patient is a 63-year-old male suffering from longstanding chronic neck pain, upper extremity pain with paresthesias. He has undergone cervical epidural injections with improvement in symptoms, but unfortunately, they are transient in nature. We have started the patient on medication management in the form of oxycodone/acetaminophen 5/325 mg tablets. He has been taking the medication consistently and feels it is beneficial for pain control. The patient returns today for refill of medications to continue analgesic benefit. At worst, the patient is reporting pain score 3/10. The patient reports his pain is chronic, describes the pain as burning and aching, exacerbated with movement of his cervical spine, improves with medications and previous cervical epidural injections. He returns today in followup visit for refill of medications. The patient is denying side effects of sleepiness, disorientation, confusion, mental slowing or constipation with the medication. ALLERGIES: SULFA and ALOE VERA. CURRENT MEDICATIONS: Oxycodone/acetaminophen 5/325 one tab every 8 hours p.r.n. for pain, nabumetone 500 mg t.i.d., ferrous sulfate 325 mg per day, multivitamin 1 tab per day, olmesartan/hydrochlorothiazide 40/12.5 mg once a day, ibuprofen 200 mg p.r.n., aspirin 81 mg per day, metoprolol 25 mg per day, atorvastatin 20 mg per day and Plavix 75 mg per day. SOCIAL HISTORY: The patient continues to smoke up to 1.5-2 packs per day. He has done so for 50 years. Denies IV or illicit drug use. Admits to occasional alcohol beverage. He is working on receiving workmen's compensation, unaccompanied today. IMAGING: No new imaging available. PHYSICAL EXAMINATION: VITAL SIGNS: Blood pressure 106/66, pulse 72, respiratory rate 16 and unlabored. The patient is 97% on room air. Height is 5 feet 6 inches tall, weight 218.2 pounds, BMI calculated 35.2. GENERAL: Well-developed, well-nourished, well-hydrated 63-[place] [address] PAIN MANAGEMENT CONSULTATION Name: HEARDHEIDE Tabor Room #: REG NARINDER Serrano#: [id number] Admission: 11/17/19 Attend Phys: Ferny Menendez DO Discharge: Date of : 53 Report #: [id number] appearing stated age. Pain is rated around 3/10. The patient does have a smell of tobacco smoke. He is placing pain at its worst 3/10. HEENT: Normocephalic, atraumatic. Pupils equal, round, reactive to light. EXTREMITIES: Show no clubbing, no cyanosis, and no noted edema. MUSCULOSKELETAL: Upper extremity strength is symmetrical again today. Muscle bulk and tone appears symmetrical in comparing left upper extremity to right. Spurling's test remains positive. Cervical provocation testing is showing increased axial cervical spine pain. ASSESSMENT: 1. Cervical radiculopathy. 2. Spinal stenosis of the cervical spine. 3. Neural foraminal stenosis of the cervical spine. 4. Displacement of cervical intervertebral disk with radiculopathy. 5. Cervical spondylosis with radiculopathy. 6. Chronic intractable pain. 7. Opioid dependency. PLAN: 1. The patient returns today in followup visit, where we had a long discussion with him in regards to the use of opioid medication for pain control. At present, he is utilizing the medication appropriately. We have reviewed the patient's PDMP, both on the [place] and [place] side, and he has no concerning entries. He does appear to be utilizing the medication appropriately. He is having no side effects to the therapy, including somnolence, decreased mental acuity, disorientation, confusion, or mental slowing as well as constipation. We recommend the patient remain on the medication as he is seeing benefit, which allows him to go about his activities of daily living. Given his low MME of 20 morphine equivalents a day, we have agreed to provide the patient with 2 months' worth of medication, 1 releasing today and 1 in 4 weeks. This will reduce the patient's need to return to the clinic more frequently. If he remains stable on the medication and no adjustments are necessary, he can either return to see his PCP for continued management or can follow up with our clinic. We reviewed the fact that opiate medications are being used to provide analgesia adequate to support activities of daily living, not attempting to achieve a specific pain score on the 0-10 Visual Analog Scale. The current opiate medications are providing sufficient analgesia to allow the patient to participate in activities of daily living. The patient is not exhibiting any aberrant behavior suggestive of drug diversion. The patient is not having any adverse reactions to medications. The patient is not suffering from daytime somnolence or mental acuity changes. The patient is managing opiate-induced constipation with appropriate [id number] agents and dietary considerations. The patient was counseled on concern for caution with operating a motor vehicle while using opiate medications. [facility] [address] [place] [address] PAIN MANAGEMENT CONSULTATION Name: HEIDE HEARD Room #: REG Shahab Kuhn.#: [id number] Admission: 11/17/19 Attend Phys: Ferny Menendez DO Discharge: Date of : 53 Report #: [id number] A physical exam was performed and the patient's functional status was evaluated. All patients with back pain were advised against the bed rest greater than 4 days and were advised to return to normal activities. Pain score assessment was noted and the treatment plan was reviewed with the patient. All current medications, both prescribed and OTC were reviewed and reconciled on the electronic medical record. Tobacco screening was accomplished and smoking cessation was advised when indicated. BMI was noted and diet/exercise modification was recommended for all patients following outside normal parameters. I reviewed with the patient today their responsibilities to safeguard prescription medications, reviewed their responsibility to utilize medications only as prescribed by the physician. They are to seek and receive pain medications only from 1 physician group ( [facility]). They are to use 1 pharmacy and keep the clinic informed if they change pharmacies. Their responsibilities include making followup visits in a timely fashion and to avoid abrupt discontinuation of medication usage. Their responsibilities further include bringing their medications (bottles from the pharmacy with residual pills) to the visit for possible confirmation of pill counts and the patient understands it is their responsibility to submit to random drug screens to ensure both that the medications prescribed are present, and that no other controlled substances are present. All prescriptions provided today were generated electronically. 2. The patient was provided a prescription of Percocet 5/325 one tab p.o. q.8 hours p.r.n. for pain. I have given the patient #90 tablets releasing today and 4 weeks from today, 2 months' worth of medication. Prescriptions were sent via E-scribe to local pharmacy. 3. We discussed with the patient smoking cessation. We advised the patient that smoking is directly linked to chronic pain and this activity is exacerbating his symptoms. The patient must look into smoking cessation programs, if he wishes his pain to improve significantly. We will defer to the primary team for referrals for this issue unless the patient requests that we provide that referral and we could certainly do so. 4. We will see the patient back in followup visit in 2 months for medication management. <ELECTRONICALLY SIGNED> By: Ferny Menendez DO 11/30/19 1005 1605 2125 Ferny Menendez DO /nt
== END ==
LOC: PAIN 09:02
DX: M48.02 Spinal stenosis, cervical region (principal); M50.10 Cervical disc disorder with radiculopathy, unspecified cervical region; M47.22 Other spondylosis with radiculopathy, cervical region; G89.4 Chronic pain syndrome; F11.20 Opioid dependence, uncomplicated

== ENCOUNTER → 2020-01-27 | Outpatient (CLI) | payer OTHER ==
[~2020-01-27] VITALS: Ht 167.6 cm; Wt 94.9 kg
[~2020-01-27] MED LIST changes: +OXYCODONE-ACET1 EACH PO
[2020-01-27 12:26] VITALS: BP 110/72
--- NOTE | 2020-01-27 12:32 | NUR ---
Pain Clinic Assessment: 1. History of Osteoarthritis: NECK HANDS History of Rheumatoid Arthritis: Not Applicable 2. Height: 5 ft. 6 in. 167.6 cm. Weight: 209.2 lb. oz. 94.893 kg. Patient's BMI: 33.8 3. Vital Signs: BP: 110/72 Pulse: 83 Resp: 16 Temp: 02 Sat: 97 ECG Mon: 4. Pain Intensity: 4-5 5. Fall Risk: Dizziness: N Needs help standing or walking: N Fallen in the last 3 months: N Fall risk comments: 6. Patient on Blood Thinner: PLAVIX 7. History of Hypertension: Y 8. Opioid Therapy greater than 6 weeks: Y Opiate Contract Signed: 9. Risk Assessment Tool Provided: LOW RISK 3 10. Functional Assessment Tool: 11. Recreational Drug Use: Never Drug Type: Tobacco Use: Current Every Day Smoker Tobacco Type: Cigarettes Amount or Packs/day: 1.5 PACKS/DA How Many Years: Alcohol Use: Yes Frequency: Monthly Quant: 1
--- NOTE | 2020-02-02 08:27 | HPC ---
[facility] [address] [place] [address] PAIN MANAGEMENT CONSULTATION Name: HEIDE HEARD Room #: REG TONIAShahab Serrano#: [id number] Admission: 01/27/20 Attend Phys: Ferny Menendez DO Discharge: Date of : 53 Report #: [id number] THIS REPORT FOR: cc: Elise Diez Cassandra M. DO Johnson, James E. DO ~ DATE OF SERVICE: 01/27/2020 REFERRING PHYSICIAN: Elise Diez DO CHIEF COMPLAINT: Neck pain, bilateral upper extremity pain with paresthesias. HISTORY OF PRESENT ILLNESS: As you know, the patient is a 64-year-old male who has returned today in followup visit with recurrent neck pain and bilateral upper extremity pain with paresthesias. The patient indicates previous cervical epidural injection gave improvement in symptoms of 80% lasting for months. He recently saw Neurosurgery and advised that surgical options do exist, but they recommend more conservative treatment initially. The patient is agreeable. He has made today's appointment to discuss the possibility of increasing his opioid medication by 1 tablet a day and also to undergo cervical epidural injection. The patient is denying side effects to medication including somnolence, decreased mental acuity, disorientation, confusion, mental slowing. ALLERGIES: SULFA and ALOE VERA. CURRENT MEDICATIONS: Oxycodone/acetaminophen 5/325 one tab every 6 hours p.r.n. for pain, nabumetone 500 mg t.i.d., ferrous sulfate 325 mg per day, multivitamin 1 tab per day, olmesartan/hydrochlorothiazide 40/12.5 mg once a day, ibuprofen 200 mg p.r.n., aspirin 81 mg per day, metoprolol 25 mg per day, atorvastatin 20 mg per day, Plavix 75 mg once a day. SOCIAL HISTORY: The patient continues to smoke up to 2 packs of tobacco per day and has done so for 50 years. Denies IV or illicit drug use. Denies any chronic alcohol use. He is working, not receiving workmen's compensation, unaccompanied today. IMAGING: No new imaging available. PQRS: The patient has known arthritic changes of the cervical spine, bilateral knees. No rheumatoid arthritis. He is placing pain intensity today 4-5/10. He is not a fall risk, has not had a fall in last 3 months. He is on blood thinners in the form of Plavix, but held the medication for the past 7 days in preparation for today's procedure. He is treated for hypertension successfully with blood pressure well controlled today. He is on chronic opioids, has been [address] [address] PAIN MANAGEMENT CONSULTATION Name: HEIDE HEARD Room #: REG NARINDER Serrano#: [id number] Admission: 01/27/20 Attend Phys: Ferny Menendez DO Discharge: Date of : 53 Report #: [id number] for an extended period of time. He has a low opioid addiction potential based on our assessment tool. Pain impact is 35/70, moderate interference of daily activities secondary to pain. PHYSICAL EXAMINATION: VITAL SIGNS: Blood pressure 110/72, pulse 83, respiratory rate 16 and unlabored. The patient is 97% on room air. Height 5 feet 6 inches tall, weight 209.2 pounds, BMI calculated 33.8. GENERAL: Well-developed, well-nourished, well-hydrated exogenously obese 64-year-old male appearing stated age, placing current pain score 4-5/10. HEENT: Normocephalic, atraumatic. Pupils equal, round, reactive to light. Speech fluent. EXTREMITIES: Show no clubbing, no cyanosis, and no edema. MUSCULOSKELETAL: Upper extremity strength appears symmetrical 5/5. He is intact to light touch from C5-T1 dermatomes. There is no atrophy in the musculature of the upper extremity. Muscle bulk and tone is equal and symmetrical. Cervical provocation testing is met with axial cervical pain. No spinous process tenderness. Spurling's test is positive. ASSESSMENT: 1. Symptomatic cervical radiculopathy. 2. Spinal stenosis of the cervical spine. 3. Neural foraminal stenosis of the cervical spine. 4. Displacement of cervical intervertebral disk with radiculopathy. 5. Cervical spondylosis with radiculopathy. 6. Opioid dependency. 7. Complicated medication management utilizing scheduled medications. 8. Chronic intractable pain. PLAN: 1. The patient returns today in followup visit indicating he has done very well with previous epidural injection and 80% improvement in overall pain. Unfortunately, his symptoms have begun to return. He returns today in followup visit requesting to undergo a cervical epidural injection to build on success of previous intervention. The patient was advised risks and benefits of the procedure, states understood and wished to proceed. 2. The patient has recently seen Dr. Moose Contreras, his neurosurgeon to discuss surgical options. It was advised at the time of the appointment that he should continue conservative treatment given the fact that he is managing his symptoms fairly well. The patient indicates that Dr. Contreras had advised he can take more opioid medication if necessary. I did caution the patient that escalating dose of opioids is contraindicated by [facility] though he has had a fairly low dose of opioid medication at present. Further escalation in medications does place him at higher risk given his chronic smoking issues, his age and the effects of opioids overall. The patient is understanding our concern, but is requesting a possible increase to 4 tabs a day maximum. We have agreed to do so [facility] [address] [place] [address] PAIN MANAGEMENT CONSULTATION Name: HEIDE HEARD Room #: REG NARINDER Kuhn.#: [id number] Admission: 01/27/20 Attend Phys: Ferny Menendez DO Discharge: Date of : 53 Report #: [id number] with the understanding that further escalation will have to be addressed with adjustments in another treatment course. 3. We reviewed the fact that opiate medications are being used to provide analgesia adequate to support activities of daily living, not attempting to achieve a specific pain score on the 0-10 Visual Analog Scale. The current opiate medications are providing sufficient analgesia to allow the patient to participate in activities of daily living. The patient is not exhibiting any aberrant behavior suggestive of drug diversion. The patient is not having any adverse reactions to medications. The patient is not suffering from daytime somnolence or mental acuity changes. The patient is managing opiate-induced constipation with appropriate dmbr-pil-ulxoxcc agents and dietary considerations. The patient was counseled on concern for caution with operating a motor vehicle while using opiate medications. A physical exam was performed and the patient's functional status was evaluated. All patients with back pain were advised against the bed rest greater than 4 days and were advised to return to normal activities. Pain score assessment was noted and the treatment plan was reviewed with the patient. All current medications, both prescribed and OTC were reviewed and reconciled on the electronic medical record. Tobacco screening was accomplished and smoking cessation was advised when indicated. BMI was noted and diet/exercise modification was recommended for all patients following outside normal parameters. I reviewed with the patient today their responsibilities to safeguard prescription medications, reviewed their responsibility to utilize medications only as prescribed by the physician. They are to seek and receive pain medications only from 1 physician group ( [facility]). They are to use 1 pharmacy and keep the clinic informed if they change pharmacies. Their responsibilities include making followup visits in a timely fashion and to avoid abrupt discontinuation of medication usage. Their responsibilities further include bringing their medications (bottles from the pharmacy with residual pills) to the visit for possible confirmation of pill counts and the patient understands it is their responsibility to submit to random drug screens to ensure both that the medications prescribed are present, and that no other controlled substances are present. All prescriptions provided today were generated electronically. 4. The patient was provided a prescription of oxycodone/acetaminophen 5/325 mg dose 1 tab p.o. q. 6 hours p.r.n. for pain. I have given the patient #120, releasing today, 4 weeks from today, 8 weeks from today, 3 months' worth of medication. 5. The patient was provided refill prescription of nabumetone 500 mg dose 1 tab p.o. t.i.d. I have given the patient #90 tablets, 2 refills. The patient was advised not to take this medication well. He is on Plavix. He states he understands and only uses the medication when it is impossible to do so. He is to watch for increasing bleeding with the use of the medication even though he is utilizing it only when he is off his Plavix. 6. We will see the patient back in followup visit in 3 months for medication management, earlier if he wishes to undergo next in the series of cervical epidural injections. [facility] [address] [place] [address] PAIN MANAGEMENT CONSULTATION Name: HEIDE HEARD Room #: REG CL Hattie#: [id number] Admission: 01/27/20 Attend Phys: Ferny Menendez DO Discharge: Date of : 53 Report #: [id number] PROCEDURE NOTE DESCRIPTION OF PROCEDURE: C7-T1 cervical epidural steroid injection under fluoroscopic guidance. After obtaining written consent, the patient was taken back to fluoroscopy suite, placed in prone position with separate pillows under chest and forehead to decrease cervical lordosis. Skin overlying cervical area then prepped and draped in aseptic fashion. C7-T1 cervical intervertebral space was identified by AP fluoroscopy. Skin and subcutaneous tissue overlying target site injection anesthetized with 3 mL of 1% lidocaine. A 20-gauge 3-1/2 inch Tuohy needle advanced under fluoroscopic guidance towards the epidural space using a midline approach. Epidural space identified using loss of resistance to air technique. After negative aspiration for heme or cerebrospinal fluid, 1 mL of Omnipaque injected. A cervical epidurogram was confirmed using both AP and oblique fluoroscopy. After negative aspiration for heme or cerebrospinal fluid, 5 mL of a solution containing 2 mL 40 mg per mL, 80 mg total triamcinolone along with 3 mL of lidocaine 1% injected slowly. Needle retracted retirement, flushed with 1 mL of 1% lidocaine and then removed. Sterile bandage placed over injection site. No new motor deficits present in the upper extremities following procedure. The patient tolerated procedure well, carefully escorted to recovery room in stable condition. No apparent complications. After meeting discharge criteria, the patient is discharged home. <ELECTRONICALLY SIGNED> By: Ferny Menendez DO 02/02/20 0827 1304 19 Ferny Menendez, DO /nt
== END | disposition home or self-care (01) ==
LOC: PAIN 06:46
DX: M50.10 Cervical disc disorder with radiculopathy, unspecified cervical region (principal); M48.02 Spinal stenosis, cervical region; M47.22 Other spondylosis with radiculopathy, cervical region; G89.29 Other chronic pain; I10 Essential (primary) hypertension; F17.210 Nicotine dependence, cigarettes, uncomplicated; F11.20 Opioid dependence, uncomplicated; Z88.2 Allergy status to sulfonamides; Z88.8 Allergy status to other drugs, medicaments and biological substances; Z79.899 Other long term (current) drug therapy

== ENCOUNTER → 2020-03-23 | Outpatient (CLI) | payer OTHER ==
[~2020-03-23] VITALS: Ht 170.2 cm; Wt 97.0 kg
--- NOTE | ~2020-03-23 | HPC ---
[facility] [address] [place] [address] PAIN MANAGEMENT CONSULTATION Name: HEIDE HEARD Room #: REG TONIAShahab Serrano#: [id number] Admission: 03/23/20 Attend Phys: Ferny Menendez DO Discharge: Date of : 53 Report #: [id number] THIS REPORT FOR: cc: Elise Diez Cassandra M. DO Johnson, James E. DO ~ CC: Elise Ansari DATE OF SERVICE: 03/23/2020 REFERRING PHYSICIAN: Elise Diez DO CHIEF COMPLAINT: Neck pain, bilateral lower extremity pain with paresthesias. HISTORY OF PRESENT ILLNESS: As you know, the patient is a 64-year-old male who returns today in followup visit for next in the series of cervical epidural injections under fluoroscopic guidance. The patient has noted excellent benefit with previous cervical epidural injection, noting 80% improvement in overall pain lasting for nearly 2 months. Unfortunately, his symptoms have begun to return. He now describes pain involving bilateral upper extremities that he has noted to be chronic in nature. He describes the pain as aching, burning, numbness and tingling. Today's pain score is rated at 3/10. He returns today in followup visit to undergo next in the series of cervical epidural injections under fluoroscopic guidance to address cervical radiculopathy. The patient denies injury or trauma that may have led to symptom recurrence. He is also requesting refill of his medications, as he does find these medications do provide benefit when the epidural injection begins to wane in its activity. ALLERGIES: SULFA and ALOE VERA. CURRENT MEDICATIONS: Percocet 5/325 one tab every 6 hours p.r.n. for pain, nabumetone 500 mg t.i.d., ferrous sulfate 325 mg per day, multivitamin 1 tab per day, olmesartan/hydrochlorothiazide 40/12.5 mg once a day, ibuprofen 200 mg p.r.n., aspirin 81 mg per day, metoprolol 25 mg per day, atorvastatin 20 mg per day, Plavix 75 mg per day. SOCIAL HISTORY: The patient continues to smoke up to 2 packs of tobacco per day. He has done so for 50+ years. Denies IV or illicit drug use. He admits to 1 alcohol beverage on an occasional basis. He is unaccompanied today. IMAGING: No new imaging available. PQRS: The patient has known arthritic changes of the cervical spine, bilateral knees and to a lesser degree of the lumbar spine. He denies rheumatoid [address] [address] PAIN MANAGEMENT CONSULTATION Name: HEIDE HEARD Room #: REG CLShahab Kuhn.#: [id number] Admission: 03/23/20 Attend Phys: Ferny Menendez DO Discharge: Date of : 53 Report #: [id number] arthritis[address] He [address] pain intensity today 3/10. He is not a fall risk, has not had a fall in last 3 months. He is on blood thinners in the form of Plavix, but stopped the medication 7 days ago in preparation for today's procedure. He is treated for hypertension. He is on chronic opioids and has a low opioid addiction potential based on our assessment tool. Pain impact score is 24/70, [id number] interference of daily activities secondary to pain. PHYSICAL EXAMINATION: VITAL SIGNS: Blood pressure 128/69, pulse 77, respiratory rate 18 and unlabored. The patient is 98% on room air. Height 5 feet 7 inches tall, weight 213.8 pounds, BMI calculated 33.5. GENERAL: Well-developed, well-nourished, well-hydrated 64-year-old male, who appears his stated age, placing current pain score 3/10. HEENT: Normocephalic, atraumatic. Pupils equal, round, reactive to light. Speech is fluent. EXTREMITIES: Show no clubbing, no cyanosis, no edema. MUSCULOSKELETAL: Upper extremity strength remains symmetrical again today 5/5. He has equal and symmetrical upper extremity muscle bulk and tone. Cervical testing shows axial cervical spine discomfort involving myofascial areas. No spinous process tenderness. His Spurling's test remains positive. ASSESSMENT: 1. Symptomatic cervical radiculopathy. 2. Spinal stenosis of the cervical spine. 3. Neural foraminal stenosis of the cervical spine. 4. Displacement of cervical intervertebral disk with radiculopathy. 5. Cervical spondylosis with radiculopathy. 6. Opioid dependency. 7. Complicated medication management utilizing scheduled medications. 8. Chronic intractable pain. 9. Tobacco habituation. PLAN: 1. The patient returns today in followup visit where we have a very long discussion with the patient in regards to the use of cigarettes. It has been noted that a chronic pain is exacerbated by tobacco misuse and we have discussed this with the patient today. There is a strong possibility that his ongoing social activity is exacerbating his pain issues. We strongly suggest the patient begin a smoking cessation program. At this point, the patient does not wish to consider this option. 2. The patient has requested and we will perform a cervical epidural injection under fluoroscopic guidance to address his recurrent cervical radiculopathy. The patient was advised risks and benefits of this procedure. These risks include but are not necessarily limited to bleeding, bruising, infection, worsening pain, no relief of pain, also risk of temporary or permanent muscle weakness, temporary or permanent nerve damage, possible paralysis, post-dural [facility] [address] [place] [address] PAIN MANAGEMENT CONSULTATION Name: HEIDE HEARD Room #: REG [facility].Sharona.#: [id number] Admission: 03/23/20 Attend Phys: Ferny Menendez DO Discharge: Date of : 53 Report #: [id number] puncture headache and . The patient states understood and wished to proceed. We also discussed the potential risks of steroid exposures in regards to the COVID-19. It has been noted that steroids can reduce the immune response and thus places the patient at higher risk for jimena COVID-19. The patient was also advised that steroid exposures can exacerbate symptoms of individuals who may be currently asymptomatic. The patient denies any exposure to any known risk of the COVID-19, though this cannot be ruled out entirely. The patient states he understands his risks with steroids and the cervical epidural injection and wishes to proceed. The patient was provided a prescription of nabumetone 500 mg dose 1 tab p.o. t.i.d. I have given the patient #90 tablets, releasing today, 4 weeks from today, 8 weeks from today, 3 months' worth of medication. 3. The patient was provided a prescription for Percocet 5/325 one tab every 6 hours p.r.n. for pain. Again, the patient #120 tablets to release in 4 weeks and 8 weeks providing 3 months' worth of medication. The patient will fill his existing prescription this week. These will then make for the final 2 months. The patient will take the medication as directed. He is not to utilize medication prophylactically. 4. We will see the patient back in followup visit on an as-needed basis for possible next in the series of cervical epidural injections. Otherwise, we will see him back in 3 months for medication management. PROCEDURE NOTE DESCRIPTION OF PROCEDURE: C7-T1 cervical epidural steroid injection under fluoroscopic guidance. After obtaining written consent, the patient was taken back to fluoroscopy suite, placed in prone position with separate pillows under chest and forehead to decrease cervical lordosis. Skin overlying cervical area then prepped and draped in aseptic fashion. The C7-T1 cervical interspace identified by AP fluoroscopy. Skin and subcutaneous tissue overlying target site injection anesthetized with 3 mL of 1% lidocaine. A 20-gauge 3-1/2 inch Tuohy needle advanced under fluoroscopic guidance towards the epidural space using a midline approach. Epidural space identified using [id number] to air technique. After negative aspiration for heme or cerebrospinal fluid, 1 mL of Omnipaque injected. A cervical epidurogram confirmed using both AP and oblique fluoroscopy. After negative aspiration for heme or cerebrospinal fluid, 5 mL of a solution-containing 2 mL 40 mg per mL, 80 mg total triamcinolone along with 3 mL of preservative-free normal saline was injected. Needle was retracted approximately half way, flushed with 1 mL of 1% lidocaine and removed. Sterile bandage placed over injection site. There were [facility] [address] [place] [address] PAIN MANAGEMENT CONSULTATION Name: HEIDE HEARD Room #: REG NARINDER Serrano#: [id number] Admission: 03/23/20 Attend Phys: Ferny Menendez DO Discharge: Date of : 53 Report #: [id number] no new motor deficits present in the upper extremities following procedure. The patient tolerated procedure well, carefully escorted to recovery room in stable condition. No apparent complications. After meeting discharge criteria, the patient discharged home. By: [id number] Ferny Menendez DO /baron
[2020-03-23 12:47] VITALS: BP 128/69
--- NOTE | 2020-03-23 12:54 | NUR ---
Pain Clinic Assessment: 1. History of Osteoarthritis: NECK HANDS History of Rheumatoid Arthritis: Not Applicable 2. Height: 5 ft. 7 in. 170.2 cm. Weight: 213.8 lb. oz. 96.979 kg. Patient's BMI: 33.5 3. Vital Signs: BP: 128/69 Pulse: 77 Resp: 18 Temp: 02 Sat: 98 ECG Mon: 4. Pain Intensity: 3 5. Fall Risk: Dizziness: N Needs help standing or walking: N Fallen in the last 3 months: N Fall risk comments: 6. Patient on Blood Thinner: PLAVIX 7. History of Hypertension: Y 8. Opioid Therapy greater than 6 weeks: Y Opiate Contract Signed: 9. Risk Assessment Tool Provided: LOW RISK 3 10. Functional Assessment Tool: 11. Recreational Drug Use: Never Drug Type: Tobacco Use: Current Every Day Smoker Tobacco Type: Cigarettes Amount or Packs/day: 1.5 How Many Years: 50 Alcohol Use: Yes Frequency: Monthly Quant: 1
== END | disposition home or self-care (01) ==
LOC: PAIN 07:12
DX: M50.10 Cervical disc disorder with radiculopathy, unspecified cervical region (principal); M48.02 Spinal stenosis, cervical region; M47.22 Other spondylosis with radiculopathy, cervical region; G89.29 Other chronic pain; I10 Essential (primary) hypertension; M19.90 Unspecified osteoarthritis, unspecified site; F17.210 Nicotine dependence, cigarettes, uncomplicated; F11.20 Opioid dependence, uncomplicated; Z98.890 Other specified postprocedural states; Z79.899 Other long term (current) drug therapy

== ENCOUNTER → 2020-05-24 | Outpatient (CLI) | payer OTHER ==
[~2020-05-24] VITALS: Ht 170.2 cm; Wt 96.5 kg
[2020-05-24 12:34] VITALS: BP 138/77
--- NOTE | 2020-05-24 12:38 | NUR ---
Pain Clinic Assessment: 1. History of Osteoarthritis: NECK HANDS History of Rheumatoid Arthritis: Not Applicable 2. Height: 5 ft. 7 in. 170.2 cm. Weight: 212.8 lb. oz. 96.526 kg. Patient's BMI: 33.3 3. Vital Signs: BP: 138/77 Pulse: 78 Resp: 18 Temp: 02 Sat: 97 ECG Mon: 4. Pain Intensity: 5 5. Fall Risk: Dizziness: N Needs help standing or walking: N Fallen in the last 3 months: N Fall risk comments: 6. Patient on Blood Thinner: PLAVIX 7. History of Hypertension: Y 8. Opioid Therapy greater than 6 weeks: Y Opiate Contract Signed: 9. Risk Assessment Tool Provided: LOW RISK 3 10. Functional Assessment Tool: 11. Recreational Drug Use: Never Drug Type: Tobacco Use: Current Every Day Smoker Tobacco Type: Amount or Packs/day: How Many Years: Alcohol Use: Yes Frequency: Monthly Quant:
--- NOTE | 2020-05-25 11:38 | HPC ---
[facility] [address] [place] [address] PAIN MANAGEMENT CONSULTATION Name: HEIDE HEARD Room #: REG NARINDER Hattie.#: [id number] Admission: 05/24/20 Attend Phys: Ferny Menendez DO Discharge: Date of : 53 Report #: [id number] THIS REPORT FOR: cc: Elise Diez Cassandra M. DO Johnson, James E. DO ~ DATE OF SERVICE: 05/24/2020 REFERRING PHYSICIAN: Elise Diez DO CHIEF COMPLAINT: Neck pain, bilateral upper extremity pain and paresthesias. HISTORY OF PRESENT ILLNESS: As you know, the patient is a 64-year-old male who returns today in followup visit to undergo next in the series of cervical epidural injections under fluoroscopic guidance. The patient reports improvement in symptoms with the previous epidural injection. He is unfortunately seeing recurrence of pain involving bilateral upper extremities. He describes the pain as aching, burning, numbness, tingling and tenderness. He places his current pain score 5/10. Pain is exacerbated with turning his head, improves with medications and previous epidural injections. He returns today in followup visit requesting to undergo lumbar epidural injection under fluoroscopic guidance and to receive refill of his pain medication for which he takes oxycodone 4 times a day for pain control. He is denying any side effects to the medication. He denies new injury or trauma that may have led to symptom recurrence. ALLERGIES: SULFA and ALOE VERA. CURRENT MEDICATIONS: Percocet 5/325 four times a day p.r.n. pain, nabumetone 500 mg 3 times a day, ferrous sulfate 325 mg once a day, multivitamin 1 tab per day, olmesartan/hydrochlorothiazide 40/12.5 mg once a day, ibuprofen 200 mg up to 3 times a day, aspirin 81 mg per day, metoprolol 25 mg per day, atorvastatin 20 mg per day, Plavix 75 mg per day (held for 7 days). SOCIAL HISTORY: The patient continues to smoke up to 2 packs of tobacco per day. He has done so for greater than 50 years. Denies IV or illicit drug use. Admits to 1 alcohol beverage on an occasional basis. He is unaccompanied today. He continues to work and participate in daily activities. IMAGING: No new imaging available. PQRS: The patient has arthritic changes of the cervical spine, bilateral knees and lumbar spine. No rheumatoid arthritis. He is placing his current pain score at 5/10. He is not a fall risk, has not had a fall in last 3 months. He is on blood thinners in the form of Plavix, but held the medication [address] [address] PAIN MANAGEMENT CONSULTATION Name: HEIDE HEARD Room #: REG NARINDER Serrano#: [id number] Admission: 05/24/20 Attend Phys: Ferny Menendez DO Discharge: Date of : 53 Report #: [id number] in preparation for today's procedure. He is treated for hypertension. He is on chronic opioids and has a low opiate addiction potential based on our assessment tool. Pain impact 24/70, moderate interference of daily activities secondary to pain. PHYSICAL EXAMINATION: VITAL SIGNS: Blood pressure 138/77, pulse 78, respiratory rate 18 and unlabored. The patient is 97% on room air. Height 5 feet 7 inches tall, weight 212.8 pounds, BMI calculated 33.3. GENERAL: Well-developed, well-nourished, well-hydrated exogenously obese 64-year-old male. He appears stated age, placing current pain score 5/10. HEENT: Normocephalic, atraumatic. Pupils equal, round and reactive. Speech is fluent. EXTREMITIES: Show no clubbing, no cyanosis, no edema. MUSCULOSKELETAL: Upper extremity strength remains symmetrical 5/5. Intact to light touch from C5 through T1 dermatomes. Spurling's test positive, mainly on the right. There is mildly positive left. Cervical provocation testing is met with increased pain. There is restriction of motion with rotation and lateral flexion due to pain. ASSESSMENT: 1. Symptomatic cervical radiculopathy. 2. Spinal stenosis of the cervical spine. 3. Neural foraminal stenosis of the cervical spine. 4. Displacement of cervical intervertebral disk with radiculopathy. 5. Cervical spondylosis with radiculopathy. 6. Opioid dependency. 7. Complicated medication management utilizing scheduled medications. 8. Chronic intractable pain. PLAN: 1. The patient returns today in followup visit requesting to undergo next in the series of cervical epidural injections. He has noted good benefit with previous cervical epidural injections, returning today in hopes of undergoing the next in the series. The patient has been advised of the risks and the benefits of this procedure. These risks include but are not necessarily limited to bleeding, bruising, infection, worsening pain, no relief of pain, also risk of temporary or permanent muscle weakness, temporary or permanent nerve damage, possible paralysis and . The patient states understood and wished to proceed. 2. The patient was provided refill prescription of his nabumetone 500 mg dose 1 tab p.o. t.i.d. I have given the patient #90 tablets, 2 refills. This is 3 months' worth of medication. He is denying side effects of dyspepsia, worsening of blood pressure, or lower extremity edema with its use. 3. We reviewed the fact that opiate medications are being used to provide analgesia adequate to support activities of daily living, not attempting to [facility] [address] [place] [address] PAIN MANAGEMENT CONSULTATION Name: HEIDE HEARD Room #: REG Shahab Kuhn.#: [id number] Admission: 05/24/20 Attend Phys: Ferny Menendez DO Discharge: Date of : 53 Report #: [id number] achieve a specific pain score on the 0-10 Visual Analog Scale. The current opiate medications are providing sufficient analgesia to allow the patient to participate in activities of daily living. The patient is not exhibiting any aberrant behavior suggestive of drug diversion. The patient is not having any adverse reactions to medications. The patient is not suffering from daytime somnolence or mental acuity changes. The patient is managing opiate-induced constipation with appropriate [id number] agents and dietary considerations. The patient was counseled on concern for caution with operating a motor vehicle while using opiate medications. A physical exam was performed and the patient's functional status was evaluated. All patients with back pain were advised against the bed rest greater than 4 days and were advised to return to normal activities. Pain score assessment was noted and the treatment plan was reviewed with the patient. All current medications, both prescribed and OTC were reviewed and reconciled on the electronic medical record. Tobacco screening was accomplished and smoking cessation was advised when indicated. BMI was noted and diet/exercise modification was recommended for all patients following outside normal parameters. I reviewed with the patient today their responsibilities to safeguard prescription medications, reviewed their responsibility to utilize medications only as prescribed by the physician. They are to seek and receive pain medications only from 1 physician group ( [facility]). They are to use 1 pharmacy and keep the clinic informed if they change pharmacies. Their responsibilities include making followup visits in a timely fashion and to avoid abrupt discontinuation of medication usage. Their responsibilities further include bringing their medications (bottles from the pharmacy with residual pills) to the visit for possible confirmation of pill counts and the patient understands it is their responsibility to submit to random drug screens to ensure both that the medications prescribed are present, and that no other controlled substances are present. All prescriptions provided today were generated electronically. 4. The patient was provided a prescription of Percocet 5/325 one tab p.o. q. 6 hours p.r.n. for pain. I have given the patient #120 tablets, releasing today, 4 weeks from today, 8 weeks from today, 3 months' worth of medication. 5. We will see the patient back in followup visit in 3 months for medication management, earlier if he wishes to discuss a repeat cervical epidural injection. PROCEDURE NOTE: DESCRIPTION OF PROCEDURE: C7-T1 cervical epidural steroid injection under fluoroscopic guidance. After obtaining written consent, the patient was taken back to the fluoroscopy suite and placed in a prone position with under abdomen to decrease lumbar [address] [address] PAIN MANAGEMENT CONSULTATION Name: HEIDE HEARD Room #: REG NARINDER Serrano#: [id number] Admission: 05/24/20 Attend Phys: Ferny Menendez DO Discharge: Date of : 53 Report #: [id number] lordosis. The skin overlying the lumbosacral area was then prepped and draped in aseptic fashion. The C7-T1 cervical interspace identified by AP fluoroscopy. Skin and subcutaneous tissue overlying the target site of injection was anesthetized with 3 mL 1% lidocaine. A 20-gauge 3.5-inch Tuohy needle was advanced under fluoroscopic guidance towards the epidural space using a midline approach. Epidural space was identified using loss of resistance to air technique. After negative aspiration for heme or cerebrospinal fluid, 1 mL of Omnipaque injected: A cervical epidurogram was confirmed using both AP and oblique fluoroscopy. After negative aspiration for heme or cerebrospinal fluid, 5 mL of a solution containing 2 mL 40 mg per mL, 80 mg total triamcinolone along with 3 mL of lidocaine 1% injected slowly. Needle retracted mcc, flushed with 1 mL of 1% lidocaine and then removed. Sterile bandage placed over injection site. There were no new motor deficits present in the upper extremities following procedure. The patient tolerated the procedure well, carefully escorted to recovery room in stable condition. No apparent complications. After meeting discharge criteria, the patient was discharged home. <ELECTRONICALLY SIGNED> By: Ferny Menendez DO 05/25/20 1138 [id number] Ferny Menendez DO /nt
== END | disposition home or self-care (01) ==
LOC: PAIN 06:51
PROVIDERS: ATTEND Anesthesiology Pain Medicine
DX: M50.10 Cervical disc disorder with radiculopathy, unspecified cervical region (principal); M48.02 Spinal stenosis, cervical region; M47.22 Other spondylosis with radiculopathy, cervical region; G89.29 Other chronic pain; F11.20 Opioid dependence, uncomplicated; I10 Essential (primary) hypertension; M19.90 Unspecified osteoarthritis, unspecified site; Z98.890 Other specified postprocedural states; Z79.899 Other long term (current) drug therapy; Z79.01 Long term (current) use of anticoagulants

== ENCOUNTER → 2020-07-27 | Outpatient (CLI) | payer OTHER ==
[~2020-07-27] VITALS: Ht 170.2 cm; Wt 93.4 kg
--- NOTE | ~2020-07-27 | HPC ---
[facility] [address] [place] [address] PAIN MANAGEMENT CONSULTATION Name: HEIDE HEARD Room #: REG NARINDER Maggie#: [id number] Admission: 07/27/20 Attend Phys: Ferny Menendez DO Discharge: Date of : 53 Report #: [id number] THIS REPORT FOR: cc: Elise Diez Cassandra M. DO Johnson, James E. DO ~ CC: Elise Ansari DATE OF SERVICE: 07/27/2020 REFERRING PHYSICIAN: Elise Diez DO CHIEF COMPLAINT: Neck pain, bilateral lower extremity pain and paresthesias. HISTORY OF PRESENT ILLNESS: As you know, the patient is a 64-year-old male with longstanding history of cervical radicular symptoms involving his neck and bilateral lower extremities. He reports mainly right-sided issues that are consistent with intermittent left upper extremity issues. He has recently been seen by Neurosurgery and advised to continue conservative treatment options until which time those become less successful, then move forward with surgical options. He returns today in followup visit to undergo next in the series of cervical epidural injections to address cervical radicular pain. He is placing his current pain score 3/10. Describes the pain as aching, burning, numbness and tenderness and tingling, exacerbated with turning his head and certain activities, improves with medications and injections. He returns today for next in the series of cervical epidural injections. ALLERGIES: SULFA and ALOE VERA. CURRENT MEDICATIONS: Percocet, nabumetone, ferrous sulfate, multivitamins, olmesartan/hydrochlorothiazide, ibuprofen, aspirin, metoprolol, atorvastatin and Plavix. SOCIAL HISTORY: The patient continues to smoke 2 packs of tobacco per day. He has done so for greater than 51 years. Denies IV or illicit drug use. Admits to 1 alcohol beverage on an occasional basis. He is unaccompanied today. IMAGING: No new imaging available. PQRS: The patient has known cervical osteoarthritic changes, bilateral knee osteoarthritic changes and lumbar spine osteoarthritic changes. No rheumatoid arthritis. He is placing current pain intensity at 3/10. He is not a fall risk nor has he had a fall in the last 3 months. He is on blood thinners in the form of Plavix, but discontinued the medication 7 days ago in preparation for today's [address] [address] PAIN MANAGEMENT CONSULTATION Name: HEIDE HEARD Room #: REG CLI Ophelia#: [id number] Admission: 07/27/20 Attend Phys: Ferny Menendez DO Discharge: Date of : 53 Report #: [id number] procedure. He is treated for hypertension. He is on chronic opioids with low opiate addiction potential based on our assessment tool. Pain impact is again 24/70, [id number] interference of daily activities secondary to pain. PHYSICAL EXAMINATION: VITAL SIGNS: Blood pressure 110/67, pulse 62, respiratory rate 16 and unlabored. The patient is 97% on room air. Height 5 feet 7 inches tall, weight 206 pounds, BMI calculated 32.3. GENERAL: Well-developed, well-nourished, well-hydrated exogenously obese 64-year-old male appearing stated age. Pain is rated today at around 3/10. HEENT: Normocephalic, atraumatic. Pupils round. Speech is fluent. EXTREMITIES: Show no clubbing, no cyanosis. No appreciable edema. MUSCULOSKELETAL: Upper extremity strength is 5/5. Muscle bulk and tone is equal and symmetrical in comparing left upper extremity to right. He is intact to light touch from C5-T1 dermatomes. Spurling's test remains positive on the right, mildly positive left. Cervical provocation testing is met with increased pain mainly to the left side with moderate restriction of motion. ASSESSMENT: 1. Symptomatic cervical radiculopathy. 2. Spinal stenosis of the cervical spine. 3. Neural foraminal stenosis of the cervical spine. 4. Displacement of cervical intervertebral disk with radiculopathy. 5. Cervical spondylosis with radiculopathy. 6. Opioid dependency. 7. Complicated medication management utilizing scheduled medications. 8. Chronic intractable pain. PLAN: 1. The patient returns today in followup visit to undergo cervical epidural injection under fluoroscopic guidance. He has reported excellent benefit with cervical epidural injections in the past, the most recent giving improvement in symptoms of greater than 50%, lasting for 6 weeks. He is very pleased with response to this injection, requesting next in the series to build on that success. The patient has been advised of the risks and the benefits of this procedure. He states understood and wished to proceed. 2. No medication changes made at today's visit. He will continue current medical therapy as previously prescribed. 3. We will see the patient back in followup visit for the next in the series of cervical epidural injections. We are hopeful the patient will see similar improvement in symptoms with today's epidural injection as he had with the last series. PROCEDURE NOTE DESCRIPTION OF PROCEDURE: C7-T1 cervical epidural steroid injection under [address] [address] PAIN MANAGEMENT CONSULTATION Name: HEIDE HEARD Room #: REG CLShahab Kuhn#: [id number] Admission: 07/27/20 Attend Phys: Ferny Menendez DO Discharge: Date of : 53 Report #: [id number] fluoroscopic guidance. After obtaining written consent, the patient was taken back to fluoroscopy suite, placed in a prone position with separate pillows under chest board to decrease cervical lordosis. Skin overlying cervical area then prepped and draped in aseptic fashion. C7-T1 cervical interspace was identified by AP fluoroscopy. Skin and subcutaneous tissue overlying target site of injection was anesthetized with 3 mL of 1% lidocaine. A 20-gauge 3-1/2 inch Tuohy needle advanced under fluoroscopic guidance towards the epidural space using a paramedian approach. Epidural space identified using loss of resistance to air technique. After negative aspiration for heme or cerebrospinal fluid, 1 mL of Omnipaque injected. Cervical epidurogram confirmed using both AP and oblique fluoroscopy. After negative aspiration for heme or cerebrospinal fluid, 5 mL of a solution containing 2 mL 40 mg per mL, 80 mg total triamcinolone along with 3 mL of lidocaine 1% injected slowly. Needle retracted prison, flushed with 1 mL of 1% lidocaine and then removed. Sterile bandage placed over injection site. No new motor deficits present in the upper extremities following the procedure. The patient tolerated the procedure well, carefully escorted to recovery room in stable condition. No apparent complications. After meeting discharge criteria, the patient discharged home. By: [id number] Ferny Menendez DO /nt
[2020-07-27 12:27] VITALS: BP 110/67
--- NOTE | 2020-07-27 12:33 | NUR ---
Pain Clinic Assessment: 1. History of Osteoarthritis: NECK HANDS History of Rheumatoid Arthritis: Not Applicable 2. Height: 5 ft. 7 in. 170.2 cm. Weight: 206.0 lb. oz. 93.441 kg. Patient's BMI: 32.3 3. Vital Signs: BP: 110/67 Pulse: 62 Resp: 16 Temp: 02 Sat: 97 ECG Mon: 4. Pain Intensity: 3 5. Fall Risk: Dizziness: N Needs help standing or walking: N Fallen in the last 3 months: N Fall risk comments: 6. Patient on Blood Thinner: PLAVIX 7. History of Hypertension: Y 8. Opioid Therapy greater than 6 weeks: Y Opiate Contract Signed: 9. Risk Assessment Tool Provided: LOW RISK 3 10. Functional Assessment Tool: 11. Recreational Drug Use: Never Drug Type: Tobacco Use: Current Every Day Smoker Tobacco Type: Cigarettes Amount or Packs/day: 15 CIGS/DAY How Many Years: 50 Alcohol Use: Yes Frequency: Special Occasions Quant: 1
== END ==
LOC: PAIN 06:50
PROVIDERS: ATTEND Anesthesiology Pain Medicine
DX: M47.22 Other spondylosis with radiculopathy, cervical region (principal); M48.061 Spinal stenosis, lumbar region without neurogenic claudication; M50.10 Cervical disc disorder with radiculopathy, unspecified cervical region; M48.02 Spinal stenosis, cervical region; G89.29 Other chronic pain; F17.210 Nicotine dependence, cigarettes, uncomplicated; Z88.2 Allergy status to sulfonamides; Z88.8 Allergy status to other drugs, medicaments and biological substances; Z79.899 Other long term (current) drug therapy; Z79.82 Long term (current) use of aspirin

== ENCOUNTER → 2020-10-11 | Outpatient (CLI) | payer OTHER ==
[~2020-10-11] VITALS: Ht 170.2 cm; Wt 98.4 kg
[2020-10-11 08:11] VITALS: BP 120/71
--- NOTE | 2020-10-12 12:28 | HPC ---
[facility] [address] [place] [address] PAIN MANAGEMENT CONSULTATION Name: HEIDE HEARD Room #: REG NARINDER Maggie#: [id number] Admission: 10/11/20 Attend Phys: Ferny Menendez DO Discharge: Date of : 53 Report #: [id number] THIS REPORT FOR: cc: Elise Diez Cassandra M. DO Johnson, James E. DO ~ DATE OF SERVICE: 10/11/2020 CHIEF COMPLAINT: Neck pain, bilateral upper extremity pain and paresthesias. HISTORY OF PRESENT ILLNESS: As you know, the patient is a very pleasant 64-year-old male returning in followup visit to undergo cervical epidural injection under fluoroscopic guidance. He is placing pain today at 3/10. States his pain begins in the neck, radiates to the shoulders and all the way down the arms into the hands. The patient has plans to see Dr. Mayank Contreras early in 2020 for cervical evaluation. He has been doing very well with cervical epidural injections and he wishes to continue this treatment. He has been off his Plavix for the past 7 days in preparation for a cervical epidural injection. He receives about 80% improvement in overall pain with each injection, lasting for nearly 2-2.5 months. He returns today in followup visit with recurrence of pain, rating symptoms at 3/10. ALLERGIES: SULFA, ALOE VERA. CURRENT MEDICATIONS: Percocet, nabumetone, ferrous sulfate, multivitamins, olmesartan, hydrochlorothiazide, ibuprofen, aspirin, metoprolol, atorvastatin and Plavix. SOCIAL HISTORY: The patient smokes 2 packs of tobacco per day and has done so for greater than 51 years. Denies IV or illicit drug use. Admits to 1 alcohol beverage on an occasional basis. He is working, not receiving workmen's compensation, unaccompanied today. IMAGING: No new imaging available. PQRS: The patient has known cervical osteoarthritis, bilateral knee osteoarthritis and lumbar osteoarthritic changes. No rheumatoid arthritis. He is placing pain today again at 3/10. He is not a fall risk, has not had a fall in last 3 months. He is on blood thinners in the form of Plavix, but discontinued the medication 10 days ago in preparation for today's epidural injection. He is treated for hypertension. He is on chronic opioids with low opiate addiction potential based on our assessment tool despite the fact that he smokes 2 packs of tobacco per day. Pain impact is 26/70, moderate interference of daily activities secondary to pain. [address] [address] PAIN MANAGEMENT CONSULTATION Name: HEIDE HEARD Room #: REG [facility].#: [id number] Admission: 10/11/20 Attend Phys: Ferny Menendez DO Discharge: Date of : 53 Report #: [id number] PHYSICAL EXAMINATION: VITAL SIGNS: Blood pressure 120/71, pulse 80, respiratory rate 16, unlabored. The patient is 97% on room air. Height 5 feet 7 inches tall, weight 217 pounds, BMI calculated 34.0. GENERAL: Well-developed, well-nourished, well-hydrated exogenously obese 64-year-old male appearing stated age. He is placing current pain score 3/10. HEENT: Normocephalic, atraumatic. Pupils equal, round. Speech is fluent. EXTREMITIES: Show no clubbing, no cyanosis, no edema. MUSCULOSKELETAL: Muscle bulk and tone is symmetrical in the upper extremities when comparing right to left. He is intact to light touch from C5 through T1 dermatomes. Spurling's test positive on the right with positive mild findings on the left. Cervical provocation testing with extension, rotation, lateral flexion, both in leftward and rightward mobility is restricted and pain is generated. ASSESSMENT: 1. Symptomatic cervical radiculopathy. 2. Spinal stenosis of the cervical spine. 3. Neural foraminal stenosis of the cervical spine. 4. Displacement of cervical intervertebral disk with radiculopathy. 5. Cervical spondylosis with radiculopathy. 6. Opioid dependency. 7. Complicated medication management utilizing scheduled medications. 8. Chronic intractable pain. PLAN: 1. The patient has returned today in followup visit to undergo cervical epidural injection under fluoroscopic guidance to address recurrent pain. He now places at 3/10. The patient denies injury or trauma that may have led to symptom reoccurrence. He feels that the epidural injections have been quite beneficial reporting up to 80% improvement in overall pain. This in combination with the Percocet for pain control tends to be working very well. He has been able to delay any surgical options with the effects of conservative treatment. He returns today for the next in the series of cervical epidural injections. 2. The patient has been advised risks and benefits of a cervical epidural injection. These risks include but are not necessarily limited to bleeding, bruising, infection, worsening pain, no relief of pain, also risk of temporary or permanent muscle weakness, temporary or permanent nerve damage, possible paralysis, post-dural puncture headache and . The patient states understood and wished to proceed. 3. A prescription of Percocet was provided to the patient today. He was advised to take the medication as directed. Prescriptions sent via E-scribe to local pharmacy. 4. No medication changes made at today's visit. The patient will continue current medical therapy as prior prescribed. 5. We will see the patient back in followup visit for medication management at [facility] [address] [place] [address] PAIN MANAGEMENT CONSULTATION Name: HEIDE HEARD Room #: REG [facility] Hattie.#: [id number] Admission: 10/11/20 Attend Phys: Ferny Menendez DO Discharge: Date of : 53 Report #: [id number] our previously agreed upon appointment time. We will see him back for next in the series of cervical epidural injections on an as needed basis. We are hopeful the patient will see good and prolonged benefit with today's epidural injection. PROCEDURE NOTE DESCRIPTION OF PROCEDURE: C7-T1 cervical epidural steroid injection under fluoroscopic guidance. After obtaining written consent, the patient was taken back to fluoroscopy suite, placed in prone position with pillow under chest and forehead to decrease cervical lordosis. Skin overlying cervical area then prepped and draped in aseptic fashion. The C7-T1 cervical interspace identified by AP fluoroscopy. Skin and subcutaneous tissue overlying target site of injection anesthetized with 3 mL of 1% lidocaine. A 20-gauge 3-1/2 inch Tuohy needle advanced under fluoroscopic guidance towards the epidural space using midline approach. Epidural space identified using loss of resistance to air technique. After negative aspiration for heme or cerebrospinal fluid, 1 mL of Omnipaque injected. Cervical epidurogram was confirmed using both AP and oblique fluoroscopy. After negative aspiration for heme or cerebrospinal fluid, 5 mL of a solution containing 2 mL of 40 mg per mL, 80 mg total triamcinolone along with 3 mL of lidocaine 1% injected slowly. Needle retracted custodial, flushed with 1 mL of 1% lidocaine and removed. Sterile bandage placed over injection site. No new motor deficits present in the upper extremities following procedure. The patient tolerated the procedure well, carefully escorted to recovery room in stable condition. No apparent complications. After meeting discharge criteria, the patient discharged home. <ELECTRONICALLY SIGNED> By: Ferny Menendez DO 10/12/20 1228 [id number] Ferny Menendez DO /nt
== END | disposition home or self-care (01) ==
LOC: PAIN 06:53
PROVIDERS: ATTEND Anesthesiology Pain Medicine
DX: M50.10 Cervical disc disorder with radiculopathy, unspecified cervical region (principal); M48.02 Spinal stenosis, cervical region; M47.22 Other spondylosis with radiculopathy, cervical region; G89.29 Other chronic pain; I10 Essential (primary) hypertension; M19.90 Unspecified osteoarthritis, unspecified site; F17.210 Nicotine dependence, cigarettes, uncomplicated; Z79.891 Long term (current) use of opiate analgesic; Z98.890 Other specified postprocedural states; Z79.899 Other long term (current) drug therapy; Z88.2 Allergy status to sulfonamides; Z88.8 Allergy status to other drugs, medicaments and biological substances

== ENCOUNTER → 2020-12-13 | Outpatient (CLI) | payer OTHER ==
[~2020-12-13] VITALS: Ht 170.2 cm; Wt 100.9 kg
[2020-12-13 08:15] VITALS: BP 119/71
--- NOTE | 2020-12-13 08:19 | NUR ---
Pain Clinic Assessment: 1. History of Osteoarthritis: NECK HANDS History of Rheumatoid Arthritis: Not Applicable 2. Height: 5 ft. 7 in. 170.2 cm. Weight: 222.4 lb. oz. 100.880 kg. Patient's BMI: 34.8 3. Vital Signs: BP: 119/71 Pulse: 79 Resp: 16 Temp: 02 Sat: 95 ECG Mon: 4. Pain Intensity: 4 5. Fall Risk: Dizziness: N Needs help standing or walking: N Fallen in the last 3 months: N Fall risk comments: 6. Patient on Blood Thinner: PLAVIX 7. History of Hypertension: Y 8. Opioid Therapy greater than 6 weeks: Y Opiate Contract Signed: 9. Risk Assessment Tool Provided: LOW RISK 3 10. Functional Assessment Tool: 11. Recreational Drug Use: Never Drug Type: Tobacco Use: Current Every Day Smoker Tobacco Type: Amount or Packs/day: 1 1/2 PACK How Many Years: 55 Alcohol Use: Yes Frequency: Monthly Quant: 1
--- NOTE | 2020-12-14 12:07 | HPC ---
[facility] [address] [place] [address] PAIN MANAGEMENT CONSULTATION Name: HEIDE HEARD Room #: REG NARINDER Maggie#: [id number] Admission: 12/13/20 Attend Phys: Ferny Menendez DO Discharge: Date of : 53 Report #: [id number] THIS REPORT FOR: cc: Elise Diez Cassandra M. DO Johnson, James E. DO ~ DATE OF SERVICE: 12/13/2020 REFERRING PHYSICIAN: Elise Diez DO. CHIEF COMPLAINT: Neck pain, bilateral upper extremity pain with paresthesias. HISTORY OF PRESENT ILLNESS: As you know, the patient is a very pleasant 65-year-old male who returns today in followup visit to undergo cervical epidural injection under fluoroscopic guidance to address cervical radicular symptoms that presents in the cervical region radiating into the upper extremities bilaterally. The patient denies injury or trauma that may have led to symptom continuation. He returns today reporting a pain score of 4/10. He states that the previous epidural injection gave 85% improvement in overall pain lasting for nearly 2 months. He has stopped his anticoagulant in preparation for today's procedure. He has been off the medication since 12/03/2020. ALLERGIES: SULFA AND ALOE VERA. CURRENT MEDICATIONS: Percocet, nabumetone, ferrous sulfate, multivitamins, olmesartan, hydrochlorothiazide, ibuprofen, aspirin, metoprolol, atorvastatin and Plavix. SOCIAL HISTORY: The patient continues to smoke 2 packs of tobacco per day and has done so for 51-1/2 years. Denies IV or illicit drug use. Admits to 1 alcohol beverage on an occasional basis. He is working, not receiving workmen's compensation, unaccompanied today. IMAGING: No new imaging available. PQRS: The patient has arthritic changes of the cervical spine, bilateral knees, bilateral shoulders and lumbar spine. No rheumatoid arthritis. He is placing current pain intensity at 4/10. He is not a fall risk, has not had a fall in last 3 months. He is on treatment for hypertension and on the anticoagulant, which he has stopped 7 days prior to today's procedure. He is on chronic opioids, has a low opiate addiction potential, despite the fact that he smokes 2 packs of cigarettes per day. He is placing current pain impact at 24 of 70, moderate interference of daily activities secondary to pain. PHYSICAL EXAMINATION: VITAL SIGNS: Blood pressure 119/71, pulse 79, respiratory rate 16 and [facility] [address] [place] [address] PAIN MANAGEMENT CONSULTATION Name: HEIDE HEARD Room #: REG [facility].#: [id number] Admission: 12/13/20 Attend Phys: Ferny Menendez DO Discharge: Date of : 53 Report #: [id number] unlabored. The patient is 95% on room air. Height 5 feet 7 inches tall, weight 222.4 pounds, BMI calculated 34.8. GENERAL: Well-developed, well-nourished, well-hydrated 65-year-old male. He appears his stated age, pain is rated today 4/10. HEENT: Normocephalic, atraumatic. Pupils equal, round and reactive. EXTREMITIES: Show no clubbing, no cyanosis. No appreciable edema. The patient is wearing a mask in compliance with COVID-19 regulations. MUSCULOSKELETAL: Upper extremity strength is symmetrical 5/5. Muscle bulk and tone equal and symmetrical in comparing upper extremities. Spurling's test remains positive. Cervical provocation testing is met with slight increase in pain. There was no noted crepitus. There was minimal restriction of motion. ASSESSMENT: 1. Symptomatic cervical radiculopathy. 2. Spinal stenosis of the cervical spine. 3. Neural foraminal stenosis of the cervical spine. 4. Displacement of cervical intervertebral disk with radiculopathy. 5. Cervical spondylosis with radiculopathy. 6. Opioid dependency. 7. Complicated medication management utilizing scheduled medications. 8. Chronic intractable pain. PLAN: 1. The patient returns today in followup visit requesting to undergo a cervical epidural injection under fluoroscopic guidance. He notes good benefit with previous cervical epidural injections, the most recent providing 85% improvement in overall pain. Unfortunately, his symptoms have begun to return. He returns today in followup visit for next in the series of cervical epidural injections. The patient has been advised risks and benefits of the procedure, states understood and wished to proceed. 2. No medication changes made at today's visit. The patient will continue current medical therapy as prior prescribed. 3. We plan to see the patient back in followup visit on an as needed basis for the next in the series of cervical epidural injections. We have plans to see him back for medication refills at our previously established appointment time. PROCEDURE NOTE DESCRIPTION OF PROCEDURE: C6-C7 cervical epidural steroid injection under fluoroscopic guidance. After obtaining written consent, the patient was taken back to fluoroscopy suite, placed in prone position with separate pillows under chest and forehead to decrease cervical lordosis. C6-C7 vertebral interspace was identified by AP fluoroscopy. Skin and subcutaneous tissue overlying target site injection anesthetized with 3 mL of 1% lidocaine. [address] [address] PAIN MANAGEMENT CONSULTATION Name: HEIDE HEARD [facility] [id number] Admission: 12/13/20 Attend Phys: Ferny Menendez DO Discharge: Date of : 53 Report #: [id number] A 20-gauge 3-1/2 inch Tuohy needle advanced under fluoroscopic guidance towards the epidural space using a midline approach. Epidural space identified using loss of resistance to air technique. After negative aspiration for heme or cerebrospinal fluid, 1 mL of Omnipaque injected. A cervical epidurogram was confirmed using both AP and oblique fluoroscopy. After negative aspiration for heme or cerebrospinal fluid, 5 mL of a solution containing 2 mL 40 mg per mL, 80 mg total triamcinolone along with 3 mL of lidocaine 1% injected slowly. Needle retracted chcf, flushed with 1 mL of 1% lidocaine and removed. Sterile bandage placed over injection site. No new motor deficits present in the upper extremities following procedure. The patient tolerated procedure well, carefully escorted to recovery room in stable condition. No apparent complications. After meeting discharge criteria, the patient discharged home. <ELECTRONICALLY SIGNED> By: Ferny Menendez DO 12/14/20 1207 1219 1327 Ferny Menendez DO /nt
== END | disposition home or self-care (01) ==
LOC: PAIN 12-12 13:07
PROVIDERS: ATTEND Anesthesiology Pain Medicine
DX: M50.10 Cervical disc disorder with radiculopathy, unspecified cervical region (principal); M47.22 Other spondylosis with radiculopathy, cervical region; M48.02 Spinal stenosis, cervical region; G89.29 Other chronic pain; I10 Essential (primary) hypertension; M19.90 Unspecified osteoarthritis, unspecified site; F11.20 Opioid dependence, uncomplicated; F17.210 Nicotine dependence, cigarettes, uncomplicated; Z98.890 Other specified postprocedural states; Z79.899 Other long term (current) drug therapy; Z79.01 Long term (current) use of anticoagulants; Z88.8 Allergy status to other drugs, medicaments and biological substances

== ENCOUNTER → 2021-02-14 | Outpatient (CLI) | payer OTHER ==
[~2021-02-14] VITALS: Ht 170.2 cm; Wt 97.5 kg
[~2021-02-14] MED LIST changes: +PERCOCET 5-3251 EACH PO
[2021-02-14 08:03] VITALS: BP 126/75
--- NOTE | 2021-02-14 08:09 | NUR ---
Pain Clinic Assessment: 1. History of Osteoarthritis: NECK HANDS History of Rheumatoid Arthritis: Not Applicable 2. Height: 5 ft. 7 in. 170.2 cm. Weight: 215.0 lb. oz. 97.524 kg. Patient's BMI: 33.7 3. Vital Signs: BP: 126/75 Pulse: 79 Resp: 14 Temp: 02 Sat: 97 ECG Mon: 4. Pain Intensity: 4-5 5. Fall Risk: Dizziness: N Needs help standing or walking: N Fallen in the last 3 months: N Fall risk comments: 6. Patient on Blood Thinner: PLAVIX 7. History of Hypertension: Y 8. Opioid Therapy greater than 6 weeks: Y Opiate Contract Signed: 9. Risk Assessment Tool Provided: LOW RISK 3 10. Functional Assessment Tool: 11. Recreational Drug Use: Never Drug Type: Tobacco Use: Current Every Day Smoker Tobacco Type: Cigarettes Amount or Packs/day: How Many Years: Alcohol Use: Yes Frequency: Monthly Quant:
--- NOTE | 2021-02-15 07:28 | HPC ---
[facility] [address] [place] [address] PAIN MANAGEMENT CONSULTATION Name: HEIDE HEARD Room #: REG NARINDER Maggie#: [id number] Admission: 02/14/21 Attend Phys: Ferny Menendez DO Discharge: Date of : 53 Report #: [id number] THIS REPORT FOR: cc: Elise Diez Cassandra M. DO Johnson, James E. DO ~ DATE OF SERVICE: 02/14/2021 CHIEF COMPLAINT: Neck pain, bilateral upper extremity pain with paresthesias. HISTORY OF PRESENT ILLNESS: As you know, the patient is a very pleasant 65-year-old male returning in followup visit for medication management. He is placing his pain score anywhere from 4-5/10. He has recently undergone the first in the series of COVID-19 injections, having the first 02/10/2021. This precludes the patient from undergoing any type of steroid exposure based on CDC's recommendations for 2 weeks beyond the second injection, which is planned for 03/03/2021. We will be scheduling the patient back for a cervical epidural injection on 03/21/2021 at 8:00 a.m. This is the first available timeframe. The patient could undergo a cervical epidural injection. He returns today for medication management. He denies injury or trauma that may have led to symptom development. He continues to experience pain involving the neck and bilateral upper extremities in classic dermatomal distribution. ALLERGIES: SULFA AND ALOE VERA. CURRENT MEDICATIONS: Oxycodone 5/325 four times a day p.r.n. pain, ferrous sulfate 325 mg per day, multivitamin 1 tab per day, Benicar/hydrochlorothiazide 40/12.5 mg once a day, ibuprofen 200 mg 3 times a day, aspirin 81 mg per day, metoprolol 25 mg per day, atorvastatin 20 mg per day, Plavix 75 mg per day. SOCIAL HISTORY: The patient continues to smoke 2 packs of tobacco per day. He has done so for almost 52 years. Denies IV or illicit drug use. Admits to 1 alcohol beverage on occasional basis. He is working, not receiving workmen's compensation, unaccompanied today. IMAGING: No new imaging available. PQRS: The patient has known arthritic changes of the cervical spine, bilateral knees, bilateral shoulders and lumbar spine. No rheumatoid arthritis. He is placing pain intensity 4-5/10. He is not a fall risk, has not had a fall in last 3 months. He is on Plavix and has continued the medication. He is treated for hypertension. He is on chronic opioids, has a low opioid addiction potential despite the fact that he continues to smoke 2 packs of tobacco per day showing an addiction potential. He reports a functional impact of , moderate interference of daily activities secondary to pain. [address] [address] PAIN MANAGEMENT CONSULTATION Name: HEIDE HEARD [id number] Admission: 02/14/21 Attend Phys: Ferny Menendez DO Discharge: Date of : 53 Report #: [id number] PHYSICAL EXAMINATION: VITAL SIGNS: Blood pressure 126/75, pulse 79, respiratory rate 14 and unlabored. The patient is 97% on room air. Height 5 feet 7 inches tall, weight 215 pounds, BMI calculated 33.7. GENERAL: Well-developed, well-nourished, well-hydrated 65-year-old male appearing stated age, placing current pain score at 4-5/10. HEENT: Normocephalic, atraumatic. Pupils are round, and responsive. The patient is wearing a mask in compliance with COVID-19 regulations. EXTREMITIES: Show no clubbing, no cyanosis. No appreciable edema. MUSCULOSKELETAL: Upper extremity strength is symmetrical again today 5/5. Muscle bulk and tone is equal and symmetrical in comparing upper extremities. Cervical provocation testing is met with pain and no "crepitus" noted with rotation. Minimal restriction of motion secondary to pain. Deep tendon reflexes equal and symmetrical biceps, brachialis and triceps. Spurling's test positive. ASSESSMENT: 1. Symptomatic cervical radiculopathy. 2. Spinal stenosis of the cervical spine. 3. Neural foraminal stenosis of the cervical spine. 4. Displacement of cervical intervertebral disk with radiculopathy. 5. Cervical spondylosis with radiculopathy. 6. Opioid dependency. 7. Complicated medication management utilizing scheduled medications. 8. Chronic intractable pain. PLAN: 1. The patient returns today in followup visit requesting refill on medications. He understands he cannot undergo a cervical epidural injection at this time as he has recently completed a COVID injection, which precludes us from providing the injection until 2 weeks after his final injection scheduled for 03/03/2021. We have made him a tentative appointment for 03/21/2021 to undergo cervical epidural injection. The patient will have to discontinue his Plavix 7 days prior to the 03/21/2021 visit. 2. We reviewed the fact that opiate medications are being used to provide analgesia adequate to support activities of daily living, not attempting to achieve a specific pain score on the 0-10 Visual Analog Scale. The current opiate medications are providing sufficient analgesia to allow the patient to participate in activities of daily living. The patient is not exhibiting any aberrant behavior suggestive of drug diversion. The patient is not having any adverse reactions to medications. The patient is not suffering from daytime somnolence or mental acuity changes. The patient is managing opiate-induced constipation with appropriate [id number] agents and dietary considerations. The patient was counseled on concern for caution with operating a motor vehicle while using opiate medications. 3. The patient was provided a prescription of oxycodone one tab p.o. q. [address] [address] PAIN MANAGEMENT CONSULTATION Name: HEIDE HEARD Room #: REG [facility]#: [id number] Admission: 02/14/21 Attend Phys: Ferny Menendez DO Discharge: Date of : 53 Report #: [id number] hours p.r.n. for pain. I have given the patient #120 tablets to release today, 4 weeks from today and 8 weeks from today, 3 months' worth of medication. All prescriptions provided via e-scribe to the local pharmacy. 4. We will see the patient back in followup visit for a cervical epidural injection 03/21/2021. Time spent with the patient in consultation, reviewing pertinent information, reviewing recent studies, clinical notes and physician reports, physical examination and correlation of the physical findings and medical documentation to determine possible treatments 15 minutes. Time spent in preparation for appointment, reviewing prescription monitoring system reports, reviewing previous records, and proposed treatment options, and reviewing current medications 10 minutes. Time spent for preparation and sending electronic prescriptions if appropriate and documentation visit and plan of treatment 5 minutes. Total time spent 30 minutes. <ELECTRONICALLY SIGNED> By: Ferny Menendez DO 02/15/21 0728 0915 0939 Ferny Menendez DO /nt
== END ==
LOC: PAIN 06:51
PROVIDERS: ATTEND Anesthesiology Pain Medicine
DX: M50.10 Cervical disc disorder with radiculopathy, unspecified cervical region (principal); M79.641 Pain in right hand; M79.642 Pain in left hand; R20.2 Paresthesia of skin; M48.02 Spinal stenosis, cervical region; F11.20 Opioid dependence, uncomplicated; G89.29 Other chronic pain; Z88.8 Allergy status to other drugs, medicaments and biological substances; Z79.899 Other long term (current) drug therapy

== ENCOUNTER → 2021-03-21 | Outpatient (CLI) | payer OTHER ==
[~2021-03-21] VITALS: Ht 170.2 cm; Wt 100.3 kg
[2021-03-21 07:56] VITALS: BP 127/80
--- NOTE | 2021-03-21 08:00 | NUR ---
Pain Clinic Assessment: 1. History of Osteoarthritis: NECK HANDS History of Rheumatoid Arthritis: Not Applicable 2. Height: 5 ft. 7 in. 170.2 cm. Weight: 221.2 lb. oz. 100.336 kg. Patient's BMI: 34.6 3. Vital Signs: BP: 127/80 Pulse: 69 Resp: 18 Temp: 02 Sat: 97 ECG Mon: 4. Pain Intensity: 6 5. Fall Risk: Dizziness: N Needs help standing or walking: N Fallen in the last 3 months: N Fall risk comments: 6. Patient on Blood Thinner: PLAVIX 7. History of Hypertension: Y 8. Opioid Therapy greater than 6 weeks: Y Opiate Contract Signed: 9. Risk Assessment Tool Provided: LOW RISK 3 10. Functional Assessment Tool: 11. Recreational Drug Use: Never Drug Type: Tobacco Use: Current Every Day Smoker Tobacco Type: Cigarettes Amount or Packs/day: 1.5 PPD How Many Years: Alcohol Use: Yes Frequency: Special Occasions Quant:
--- NOTE | 2021-03-21 12:24 | HPC ---
[facility] [address] [place] [address] PAIN MANAGEMENT CONSULTATION Name: HEIDE HEARD Room #: REG NARINDER Maggie#: [id number] Admission: 03/21/21 Attend Phys: Ferny Menendez DO Discharge: Date of : 53 Report #: [id number] THIS REPORT FOR: cc: Elise Diez Cassandra M. DO Johnson, James E. DO ~ DATE OF SERVICE: 03/21/2021 REFERRING PHYSICIAN: Elise Diez DO CHIEF COMPLAINT: Neck pain, bilateral upper extremity pain with paresthesias. HISTORY OF PRESENT ILLNESS: As you know, the patient is a very pleasant 65-year-old male who has returned today in followup visit to undergo cervical epidural injection under fluoroscopic guidance to address cervical radicular pain. The patient has done very well with cervical epidural injections and medication management. He states the combination of treatment is working beneficially, providing up to 85% improvement in overall pain. Unfortunately, his symptoms have reoccurred. He is now placing pain score 6/10. He has been off his anticoagulant for the past 7 days in preparation to undergo a cervical epidural injection. The patient does report that he has recently seen his neurosurgeon, Dr. Contreras, who recommended the patient continue to utilize cervical epidural injections as he is seeing benefit surgical options are being entertained, but at this point given the fact that he is improving conservatively, to remain taking medications and undergoing injections. He returns today for the next in the series of cervical epidural injections. ALLERGIES: SULFA AND ALOE VERA. CURRENT MEDICATIONS: See chart. SOCIAL HISTORY: The patient continues to smoke 2 packs of tobacco per day and has done so for 51-3/4 years. Denies IV or illicit drug use. Admits to 1 alcohol beverage per day. He is working, not receiving workmen's compensation, unaccompanied today. IMAGING: No new imaging available. PQRS: The patient has known arthritic changes of the cervical spine, bilateral knees, bilateral shoulders and lumbar spine. No rheumatoid arthritis. Placing current pain score 6/10. He is not a fall risk, has not had a fall in last 3 months. He is on Plavix, but has discontinued the medication 7 days ago in preparation for today's cervical epidural injection. He is treated for hypertension. He is on chronic opioids, has a low opioid addiction potential based on assessment tool. Pain impact is 24/70, moderate interference of daily activities secondary to pain. [facility] [address] [place] [address] PAIN MANAGEMENT CONSULTATION Name: HEIDE HEARD Room #: REG [facility]#: [id number] Admission: 03/21/21 Attend Phys: Ferny Menendez DO Discharge: Date of : 53 Report #: [id number] PHYSICAL EXAMINATION: VITAL SIGNS: Blood pressure 127/80, pulse 69, respiratory rate 18 and unlabored. The patient is 97% on room air. Height 5 feet 7 inches tall, weight 221.2 pounds, BMI calculated 34.6. GENERAL: Well-developed, well-nourished, well-hydrated 65-year-old male appearing stated age, pain is rated around 6/10. HEENT: Normocephalic, atraumatic. Pupils equal, round, and responsive. The patient is wearing a mask in compliance with COVID-19 regulations. He does smell of tobacco smoke. EXTREMITIES: Show no clubbing, no cyanosis, no edema. MUSCULOSKELETAL: Muscle bulk and tone equal and symmetrical in upper extremities, strength is symmetrical again today 5/5. Cervical provocation testing is met with slight increase in axial cervical pain, no radiation of symptoms. Spurling's test is positive on the left, negative right. ASSESSMENT: 1. Symptomatic cervical radiculopathy. 2. Spinal stenosis of the cervical spine. 3. Neural foraminal stenosis of the cervical spine. 4. Displacement of cervical intervertebral disk with radiculopathy. 5. Cervical spondylosis with radiculopathy. 6. Opioid dependency. 7. Complicated medication management utilizing scheduled medications. 8. Chronic intractable pain. PLAN: 1. The patient returns today in followup visit in preparation to undergo a cervical epidural injection under fluoroscopic guidance. He reports good efficacy with previous cervical epidural injection noticing up to 80% improvement in overall pain. He is pleased with response to treatment and he and his neurosurgeon have concurred that they are going to continue conservative treatment via cervical epidural injections and medication management until which time, his symptoms are intolerable. At present, he is doing very well. He wants to undergo a cervical epidural injection today. He has been advised risks and benefits of the procedure, states understood and wished to proceed. 2. The patient will restart his Plavix this afternoon and continue the Plavix as directed. No other medication changes made at today's visit. 3. We will see the patient back in followup visit on an as needed basis for cervical epidural injection. Otherwise, we will see him back for medication management are pre-agreed upon appointment time. PROCEDURE NOTE DESCRIPTION OF PROCEDURE: C7-T1 cervical epidural steroid injection under fluoroscopic guidance. [address] [address] PAIN MANAGEMENT CONSULTATION Name: HEIDE HEARD Room #: REG CLI [facility]#: [id number] Admission: 03/21/21 Attend Phys: Ferny Menendez DO Discharge: Date of : 53 Report #: [id number] After obtaining written consent, the patient was taken back to fluoroscopy suite, placed in prone position with separate pillows under chest and forehead to decrease cervical lordosis. Skin overlying cervical area prepped and draped in aseptic fashion. C7-T1 cervical interspace was identified by AP fluoroscopy. Skin and subcutaneous tissue overlying target site injection anesthetized with 3 mL of 1% lidocaine. A 20-gauge 3-1/2 inch Tuohy needle advanced under fluoroscopic guidance towards the epidural space using a midline approach. Epidural space identified using loss of resistance to air technique. After negative aspiration for heme or cerebrospinal fluid, 1 mL of Omnipaque injected. Cervical epidurogram was confirmed using both AP and oblique fluoroscopy. After negative aspiration for heme or cerebrospinal fluid, 5 mL of a solution containing 2 mL 40 mg per mL, 80 mg total triamcinolone along with 3 mL of lidocaine 1% injected slowly. Needle retracted penitentiary, flushed with 1 mL of 1% lidocaine, then removed. Sterile bandage placed over injection site. No new motor deficits present in the upper extremities following procedure. The patient tolerated procedure well, carefully escorted to recovery room in stable condition. No apparent complications. After meeting discharge criteria, the patient discharged home. <ELECTRONICALLY SIGNED> By: Ferny Menendez DO 03/21/21 1224 [id number] 1036 Ferny Menendez DO /baron
== END | disposition home or self-care (01) ==
LOC: PAIN 07:32
PROVIDERS: ATTEND Anesthesiology Pain Medicine
DX: M50.10 Cervical disc disorder with radiculopathy, unspecified cervical region (principal); M47.22 Other spondylosis with radiculopathy, cervical region; M48.02 Spinal stenosis, cervical region; G89.29 Other chronic pain; I10 Essential (primary) hypertension; M19.90 Unspecified osteoarthritis, unspecified site; F17.210 Nicotine dependence, cigarettes, uncomplicated; F11.20 Opioid dependence, uncomplicated; Z98.890 Other specified postprocedural states; Z79.899 Other long term (current) drug therapy; Z88.2 Allergy status to sulfonamides; Z88.8 Allergy status to other drugs, medicaments and biological substances

== ENCOUNTER → 2021-05-16 | Outpatient (CLI) | payer OTHER ==
[~2021-05-16] VITALS: Ht 170.2 cm; Wt 94.3 kg
[~2021-05-16] MED LIST changes: +LIPITOR40 MG PO
--- NOTE | ~2021-05-16 | HPC ---
[facility] [address] [place] [address] PAIN MANAGEMENT CONSULTATION Name: HEIDE HEARD Room #: REG NARINDER Kailee.#: [id number] Admission: 05/16/21 Attend Phys: Ferny Menendez DO Discharge: Date of : 53 Report #: [id number] THIS REPORT FOR: cc: Elise Diez Cassandra M. DO Johnson, James E. DO ~ DOC #: [id number] cc: MD Ferny Glasgow DO DATE OF SERVICE: 05/16/2021 REFERRING PHYSICIAN: Dr. Mayank Contreras CHIEF COMPLAINT: Neck pain, bilateral upper extremity pain. HISTORY OF PRESENT ILLNESS: As you know, the patient is a very pleasant 65-year-old male returning in followup visit to undergo next in the series of cervical epidural injections under fluoroscopic guidance. He states the combination of cervical epidural injections and oxycodone 4 times a day worked well for pain control, despite the fact he places pain score at 8/10. He reports about a 65-75% improvement in overall pain with the epidural injection on the last visit. He returns today in followup visit to undergo next in the series. He denies injury or trauma that may have led to symptom reoccurrence. He has been off his Plavix since the 5th of this month, in preparation for the epidural injection. ALLERGIES: SULFA AND ALOE VERA. CURRENT MEDICATIONS: See chart. SOCIAL HISTORY: The patient continues to smoke about 2 packs of tobacco per day, has done so for 51-3/4 years. Denies IV or illicit drug use. Admits to 1 alcohol beverage per day. He is working, not receiving workmen's compensation, unaccompanied today. IMAGING: No new imaging available. PQRS: The patient has known arthritic changes of the cervical spine, bilateral knees, bilateral shoulders and lumbar spine. No rheumatoid arthritis. He is placing current pain score at 8/10. He is no fall risk, has not had a fall in last 3 months. He is on blood thinners in the form of Plavix. He is treated for hypertension. He is on chronic opioids, has a low opiate addiction potential based on assessment tool. Pain impact is again 24/70, moderate interference of daily activities secondary to pain. PHYSICAL EXAMINATION: [facility] [address] [place] [address] PAIN MANAGEMENT CONSULTATION Name: HEIDE HEARD Room #: REG [facility] Maggie#: [id number] Admission: 05/16/21 Attend Phys: Ferny Menendez DO Discharge: Date of : 53 Report #: [id number] VITAL SIGNS: Blood pressure 113/75, pulse 68, respiratory rate 16 and unlabored. The patient 97% on room air. Height 5 feet 7 inches tall, weight 208 pounds, BMI calculated 32.6. GENERAL: Well-developed, well-nourished, well-hydrated 65-year-old male appearing stated age, pain is rated today at 8/10. HEENT: Normocephalic, atraumatic. Pupils equal, round and responsive. He is wearing a mask in compliance with COVID-19 regulations. Again, smells strongly of tobacco smoke. EXTREMITIES: Show no clubbing, no cyanosis and no edema. MUSCULOSKELETAL: Upper extremity strength remains symmetrical 5/5 intact to light touch from C5 through T1 dermatomes. Spurling's test positive left, negative right. Muscle bulk and tone equal and symmetrical in upper extremities. Deep tendon reflexes are symmetrical at biceps, brachioradialis and triceps. ASSESSMENT: 1. Symptomatic cervical radiculopathy. 2. Spinal stenosis of the cervical spine. 3. Neural foraminal stenosis of the cervical spine. 4. Displacement of cervical intervertebral disk with radiculopathy. 5. Cervical spondylosis with radiculopathy. 6. Opioid dependency. 7. Complicated medication management utilizing scheduled medications. 8. Chronic intractable pain. PLAN: 1. The patient returns today in followup visit requesting to undergo lumbar epidural injection under fluoroscopic guidance. He reports about a 65-75% improvement in overall pain with the epidural injection provided at our last visit. He states the combination of medications and epidural injections worked well for pain control. He has discontinued his Plavix on the 5th of this month, in preparation for today's procedure. He has been advised the risks and benefits of the procedure, he states understood and wished to proceed. 2. The patient will restart his Plavix this afternoon. Continue his Plavix until our next visit. He will follow up with the prescribing physician for any changes necessary for that medication. 3. The patient was provided prescription of oxycodone/acetaminophen 5/325 one tab p.o. q. 6 hours p.r.n. for pain. Given the patient releases of the medication today 4 weeks from today, 8 weeks from today, 3 months' worth of medication. We reviewed the patient's PDMP and recent drug screens, there is no concerning entries in either reports. All prescriptions sent via [facility] local pharmacy. 4. We will see the patient back in followup visit in 2 months for an epidural injection and 3 months for medication management. PROCEDURE NOTE [address] [address] PAIN MANAGEMENT CONSULTATION Name: HEIDE HEARD [id number] Admission: 05/16/21 Attend Phys: Ferny Menendez DO Discharge: Date of : 53 Report #: [id number] DESCRIPTION OF PROCEDURE: Cervical epidural steroid injection under fluoroscopic guidance. After obtaining written consent, the patient was taken back to fluoroscopy suite, placed in prone position with a separate pillows under chest and forehead to decrease cervical lordosis. Skin overlying cervical area then prepped and draped in aseptic fashion. The C7-T1 cervical interspace was identified by AP fluoroscopy. Skin and subcutaneous tissue overlying target site injection was anesthetized with 3 mL 1% lidocaine. A 20 gauge 3-1/2 inch Tuohy needle advanced under fluoroscopic guidance towards the epidural space using a midline approach. Epidural space identified using loss of resistance to air technique. After negative aspiration for heme or cerebrospinal fluid, 1 mL of Omnipaque injected. A cervical epidurogram was confirmed using both AP and lateral fluoroscopy. After negative aspiration for heme or cerebrospinal fluid, 5 mL of a solution containing 2 mL 40 mg per mL 80 mg total triamcinolone along with 3 mL of lidocaine, 1% injected slowly. Needle retracted usp, flushed with 1 mL of 1% lidocaine and then removed. Sterile bandage placed over injection site. No new motor deficits present in the lower extremities following procedure. The patient tolerated the procedure well, carefully escorted to recovery room in stable condition. No apparent complications. After meeting discharge criteria, the patient discharged home. DO SKIP Escalona/GABI By: [id number] Ferny Menendez DO /nt
[2021-05-16 08:10] VITALS: BP 113/75
--- NOTE | 2021-05-16 08:15 | NUR ---
Pain Clinic Assessment: 1. History of Osteoarthritis: NECK HANDS History of Rheumatoid Arthritis: Not Applicable 2. Height: 5 ft. 7 in. 170.2 cm. Weight: 208.0 lb. oz. 94.348 kg. Patient's BMI: 32.6 3. Vital Signs: BP: 113/75 Pulse: 68 Resp: 16 Temp: 02 Sat: 97 ECG Mon: 4. Pain Intensity: 8 5. Fall Risk: Dizziness: N Needs help standing or walking: N Fallen in the last 3 months: N Fall risk comments: 6. Patient on Blood Thinner: PLAVIX 7. History of Hypertension: Y 8. Opioid Therapy greater than 6 weeks: Y Opiate Contract Signed: 9. Risk Assessment Tool Provided: LOW RISK 3 10. Functional Assessment Tool: 11. Recreational Drug Use: Never Drug Type: Tobacco Use: Current Every Day Smoker Tobacco Type: Cigarettes Amount or Packs/day: 1.5 PACK How Many Years: Alcohol Use: Yes Frequency: Special Occasions Quant:
== END | disposition home or self-care (01) ==
LOC: PAIN 06:53
PROVIDERS: ATTEND Anesthesiology Pain Medicine
DX: M50.10 Cervical disc disorder with radiculopathy, unspecified cervical region (principal); M48.02 Spinal stenosis, cervical region; M47.22 Other spondylosis with radiculopathy, cervical region; G89.29 Other chronic pain; F11.20 Opioid dependence, uncomplicated; I10 Essential (primary) hypertension; M19.90 Unspecified osteoarthritis, unspecified site; Z98.890 Other specified postprocedural states; Z79.899 Other long term (current) drug therapy; Z88.2 Allergy status to sulfonamides; Z88.8 Allergy status to other drugs, medicaments and biological substances

== ENCOUNTER → 2021-07-18 | Outpatient (CLI) | payer OTHER ==
[~2021-07-18] VITALS: Ht 170.2 cm; Wt 91.3 kg
[2021-07-18 08:11] VITALS: BP 102/71
--- NOTE | 2021-07-18 08:18 | NUR ---
Pain Clinic Assessment: 1. History of Osteoarthritis: NECK HANDS History of Rheumatoid Arthritis: Not Applicable 2. Height: 5 ft. 7 in. 170.2 cm. Weight: 201.2 lb. oz. 91.264 kg. Patient's BMI: 31.5 3. Vital Signs: BP: 102/71 Pulse: 67 Resp: 20 Temp: 02 Sat: 98 ECG Mon: 4. Pain Intensity: 3 5. Fall Risk: Dizziness: N Needs help standing or walking: N Fallen in the last 3 months: N Fall risk comments: 6. Patient on Blood Thinner: PLAVIX 7. History of Hypertension: Y 8. Opioid Therapy greater than 6 weeks: Y Opiate Contract Signed: 9. Risk Assessment Tool Provided: LOW RISK 3 10. Functional Assessment Tool: 11. Recreational Drug Use: Never Drug Type: Tobacco Use: Current Every Day Smoker Tobacco Type: Cigarettes Amount or Packs/day: 1/2 pack How Many Years: Alcohol Use: Yes Frequency: Special Occasions Quant: 1
--- NOTE | 2021-07-18 10:36 | HPC ---
[facility] [address] [place] [address] PAIN MANAGEMENT CONSULTATION Name: HEIDE HEARD Room #: REG NARINDER Maggie#: [id number] Admission: 07/18/21 Attend Phys: Ferny Menendez DO Discharge: Date of : 53 Report #: [id number] THIS REPORT FOR: cc: Elise Diez Cassandra M. DO Johnson, James E. DO ~ cc: Referring Physician DATE OF SERVICE: 07/18/2021 CHIEF COMPLAINT: Neck pain, left upper extremity pain with paresthesias. HISTORY OF PRESENT ILLNESS: As you know, the patient is a very pleasant 65-year-old male returning in followup visit to undergo next in the series of cervical epidural injections under fluoroscopic guidance. The patient reports improvement in symptoms of at least 80-90%, lasting for 7 weeks with the previous injection. He returns today in followup visit to undergo next in the series of cervical epidural injections to address his recurrent pain for which he gives the pain number 3. He denies changes in his medication management since our last visit. He has stopped his Plavix in preparation for today's procedure. There has been no new injury or trauma. ALLERGIES: SULFA AND ALOE VERA. CURRENT MEDICATIONS: See chart. SOCIAL HISTORY: The patient continues to smoke 2 packs of tobacco per day, has done so for years. Denies IV or illicit drug use. Denies any chronic alcohol use. He is working, not receiving workmen's compensation, unaccompanied today. IMAGING: No new imaging is available. PQRS: The patient has known arthritic changes of the cervical spine and lumbar spine. No rheumatoid arthritis. He is not a fall risk, has not had a fall in last 3 months. He is placing current pain score 3/10. He is on chronic opioids, but has a low opioid addiction potential. He is treated for hypertension and is on current blood thinners, but has discontinued the medication in preparation for today's procedure. Pain impact is 35/70, moderate interference of daily activities secondary to pain. PHYSICAL EXAMINATION: VITAL SIGNS: Blood pressure 102/71, pulse 67, respiratory rate 20, unlabored. The patient is 98% on room air. Height 5 feet 7 inches tall, weight 201.2 pounds, BMI calculated 31.5. GENERAL: Well-developed, well-nourished, well-hydrated 65-year-old male appearing stated age, placing current pain score around 3/10. HEENT: Normocephalic, atraumatic. He is wearing a mask in compliance with [address] [address] PAIN MANAGEMENT CONSULTATION Name: HEIDE HEARD Room #: REG [facility]#: [id number] Admission: 07/18/21 Attend Phys: Freny Menendez DO Discharge: Date of : 53 Report #: [id number] COVID-19 regulations. EXTREMITIES: Show no clubbing, no cyanosis, no edema. MUSCULOSKELETAL: Upper extremity strength equal and symmetrical 5/5. He is intact to light touch from C5 through T1 dermatomes. Spurling's test positive left, negative right. Cervical provocation testing is met with slight increase in pain mainly with leftward rotation and lateral flexion. ASSESSMENT: 1. Cervical radiculopathy. 2. Cervical spondylosis with radiculopathy. 3. Chronic neck pain. PLAN: 1. The patient returns today in followup visit requesting to undergo a cervical epidural injection under fluoroscopic guidance. He reports previous cervical epidural injection gave 80-90% improvement in overall pain. He is very pleased with response to this injection, returning today to undergo next in the series. He has been advised the risks and benefits of the procedure, states understood and wished to proceed. 2. The patient has requested and we have provided a refill of his Percocet 5/325 which he takes 4 tablets per day. I have sent a prescription to his local pharmacy to release in mid August, which will allow him 2 months' worth of medication total as he has just filled his recent prescription for Percocet. We will see him back in September for medication management. 3. We will see the patient back in followup visit on an as needed basis for the next in the series of cervical epidural injections. DESCRIPTION OF PROCEDURE: C7-T1 cervical epidural steroid injection under fluoroscopic guidance. After obtaining written consent, the patient was taken back to fluoroscopy suite, placed in prone position with separate pillows under chest and forehead to decrease cervical lordosis. Skin overlying cervical area prepped and draped in aseptic fashion. The C7-T1 cervical interspace was identified by AP fluoroscopy. Skin and subcutaneous tissue overlying target site injection anesthetized with 3 mL 1% lidocaine. A 20-gauge 3-1/2 inch Tuohy needle advanced under fluoroscopic guidance towards the epidural space using a midline approach. Epidural space identified using loss of resistance to air technique. After negative aspiration for heme or cerebrospinal fluid, 1 mL of Omnipaque injected. A cervical epidurogram was confirmed using both AP and oblique fluoroscopy. After negative aspiration for heme or cerebrospinal fluid, 5 mL of a solution containing 2 mL 40 mg per mL 80 mg total triamcinolone along with 3 mL of lidocaine 1% injected slowly. Needle then retracted approximately senior care flushed with 1 mL of 1% lidocaine, then removed. Sterile bandage placed over injection site. No new motor deficits [facility] [address] [place] [address] PAIN MANAGEMENT CONSULTATION Name: HEIDE HEARD Room #: REG CLI Maggie#: [id number] Admission: 07/18/21 Attend Phys: Ferny Menendez DO Discharge: Date of : 53 Report #: [id number] present in the upper extremities. The patient tolerated the procedure well, carefully escorted to recovery room in stable condition. No apparent complications. After meeting discharge criteria, the patient discharged home. <ELECTRONICALLY SIGNED> By: Ferny Menendez DO 07/18/21 1036 0747 0840 Ferny Menendez DO /nt
== END | disposition home or self-care (01) ==
LOC: PAIN 06:59
PROVIDERS: ATTEND Anesthesiology Pain Medicine
DX: M47.22 Other spondylosis with radiculopathy, cervical region (principal); G89.29 Other chronic pain

== ENCOUNTER → 2021-09-19 | Outpatient (CLI) | payer OTHER ==
[~2021-09-19] VITALS: Ht 170.2 cm; Wt 88.6 kg
[2021-09-19 08:32] VITALS: BP 104/63
--- NOTE | 2021-09-19 08:39 | NUR ---
Pain Clinic Assessment: 1. History of Osteoarthritis: NECK HANDS History of Rheumatoid Arthritis: Not Applicable 2. Height: 5 ft. 7 in. 170.2 cm. Weight: 195.4 lb. oz. 88.633 kg. Patient's BMI: 30.6 3. Vital Signs: BP: 104/63 Pulse: 63 Resp: 16 Temp: 02 Sat: 97 ECG Mon: 4. Pain Intensity: 2 5. Fall Risk: Dizziness: N Needs help standing or walking: N Fallen in the last 3 months: N Fall risk comments: 6. Patient on Blood Thinner: PLAVIX 7. History of Hypertension: Y 8. Opioid Therapy greater than 6 weeks: Y Opiate Contract Signed: 9. Risk Assessment Tool Provided: LOW RISK 3 10. Functional Assessment Tool: 11. Recreational Drug Use: Never Drug Type: Tobacco Use: Current Every Day Smoker Tobacco Type: Cigarettes Amount or Packs/day: 1/2 PACK How Many Years: Alcohol Use: No Frequency: Quant:
--- NOTE | 2021-09-20 08:05 | HPC ---
[facility] [address] [place] [address] PAIN MANAGEMENT CONSULTATION Name: HEIDE HEARD Room #: REG NARINDER Maggie#: [id number] Admission: 09/19/21 Attend Phys: Ferny Menendez DO Discharge: Date of : 53 Report #: [id number] THIS REPORT FOR: cc: Elise Diez,Ferny Dover DO ~ cc: Elise Diez DO DATE OF SERVICE: 09/19/2021 REFERRING PHYSICIAN: Elise Diez DO CHIEF COMPLAINT: Neck pain, left upper extremity pain with paresthesias. HISTORY OF PRESENT ILLNESS: As you know, the patient is a very pleasant 65-year-old male who returns today in followup visit with recurrent cervical radiculopathy. He is placing his current pain score 2/10. He denies injury or trauma that may have led to symptom reoccurrence. He states the previous epidural injection provided at our last visit gave 80% improvement in overall pain lasting for up to 7 weeks. Unfortunately, his symptoms have reoccurred. The patient describes the pain more as an achy, burning, numbness and tingling in sensation, exacerbated with turning his head, improved with medications and cervical epidural injections. He returns today for cervical epidural injection under fluoroscopic guidance. He has stopped his Plavix 7 days prior to today's appointment for the procedure to be performed. ALLERGIES: SULFA AND ALOE VERA. CURRENT MEDICATIONS: See chart. SOCIAL HISTORY: The patient continues to smoke reporting up to 2 packs of tobacco per day, he has done so for years. Denies IV or illicit drug use. Denies any chronic alcohol use. He continues to work. He is not receiving workmen's compensation. He is unaccompanied today. IMAGING: No new imaging available. PQRS: The patient has known arthritic changes of the cervical spine, lumbar spine. No rheumatoid arthritis. He is not a fall risk, has not had a fall in last 3 months. He is placing current pain intensity at a 2/10. He is on Plavix, but discontinued the medication 7 days ago in preparation for today's procedure. He is treated for hypertension. He is also taking chronic opioid, he has a low opiate addiction potential based on our assessment tool, though has a strong addiction potential as he is smoking 2 packs of tobacco per day. Pain impact is 24/70, moderate interference of daily activities secondary to pain. PHYSICAL EXAMINATION: [facility] [address] [place] [address] PAIN MANAGEMENT CONSULTATION Name: HEIDE HEARD Room #: REG [facility].#: [id number] Admission: 09/19/21 Attend Phys: Ferny Menendez DO Discharge: Date of : 53 Report #: [id number] VITAL SIGNS: Blood pressure 104/63, pulse 63, respiratory rate 16 and unlabored. The patient 97% on room air. Height 5 feet 7 inches tall, weight 195.4 pounds, BMI calculated 30.6. GENERAL: A well-developed, well-nourished, well-hydrated 65-year-old male appearing stated age, pain is rated today 2/10. HEENT: Normocephalic, atraumatic. Pupils are round. He is wearing a mask in compliance with [facility] regulations and hospital policy. EXTREMITIES: Show no clubbing, no cyanosis and no edema. MUSCULOSKELETAL: Upper extremity strength remains symmetrical 5/5. Muscle bulk and tone is equal and symmetrical in upper extremities. He is intact to light touch from C5 through T1 dermatomes. Spurling's test is positive left and negative on the right. Deep tendon reflexes are symmetrical at biceps, brachialis and triceps. ASSESSMENT: 1. Cervical radiculopathy. 2. Cervical spondylosis with radiculopathy. 3. Chronic neck pain. 4. Chronic intractable pain. PLAN: 1. The patient returns today in followup visit having noted excellent benefit with the cervical epidural injection provided at last visit. This lasted for nearly 7 months. Unfortunately, his symptoms have reoccurred. He returns requesting a cervical epidural injection under fluoroscopic guidance. He has been advised of the risks and the benefits of this procedure, states he understood and wished to proceed. He has been off his Plavix for the past 7 days in preparation for today's procedure. We recommend he restart the Plavix this evening and continue his dosing until our next visit. 2. The patient was provided refill prescription of Percocet 5/325 one tab every 6 hours p.r.n. for pain, given the patient #120 to release today and 4 weeks from today, 2 months' worth of medication. All prescriptions sent via e-scribe to local pharmacy. 3. We plan to see the patient back in followup visit on an as needed basis for the next in the series of cervical epidural injections. We are hopeful the patient will continue to see good benefit with these injections. We will keep you apprised of response to this injection when he returns to our next visit. PROCEDURE NOTE: DESCRIPTION OF PROCEDURE: C7-T1 cervical epidural steroid injection under fluoroscopic guidance. After obtaining written consent, the patient was taken back to fluoroscopy suite, placed in prone position with separate pillows under chest and forehead to decrease cervical lordosis. Skin overlying cervical area prepped and draped [facility] [address] [place] [address] PAIN MANAGEMENT CONSULTATION Name: HEIDE HEARD Room #: REG CLI [facility]#: [id number] Admission: 09/19/21 Attend Phys: Ferny Menendez DO Discharge: Date of : 53 Report #: [id number] in aseptic fashion. C7-T1 cervical interspace identified by AP fluoroscopy. Skin and subcutaneous tissue overlying target site injection anesthetized with 3 mL of 1% lidocaine. A 20-gauge 3-1/2 inch Tuohy needle was advanced under fluoroscopic guidance towards the epidural space using a midline approach. Epidural space identified using loss of resistance to air technique. After negative aspiration for heme or cerebrospinal fluid, 1 mL of Omnipaque injected. A cervical epidurogram was confirmed using both AP and oblique fluoroscopy. After negative aspiration for heme or cerebrospinal fluid, 5 mL of solution containing 2 mL 40 mg per mL, 80 mg total triamcinolone along with 3 mL of lidocaine 1% injected slowly. Needle retracted alf, flushed with 1 mL of 1% lidocaine and removed. Sterile bandage placed over injection site. No new motor deficits present in the upper extremities following procedure. The patient tolerated the procedure well, carefully escorted to recovery room in stable condition. No apparent complications. After meeting discharge criteria, the patient discharged home. <ELECTRONICALLY SIGNED> By: Ferny Menendez DO 09/20/21 0805 [id number] Ferny Menendez DO /baron
== END | disposition home or self-care (01) ==
LOC: PAIN 06:56
PROVIDERS: ATTEND Anesthesiology Pain Medicine
DX: M47.22 Other spondylosis with radiculopathy, cervical region (principal); M54.2 Cervicalgia; G89.29 Other chronic pain; I10 Essential (primary) hypertension; F17.210 Nicotine dependence, cigarettes, uncomplicated; Z98.890 Other specified postprocedural states; Z79.899 Other long term (current) drug therapy; Z88.2 Allergy status to sulfonamides

== ENCOUNTER → 2021-11-28 | Outpatient (CLI) | payer OTHER ==
[~2021-11-28] VITALS: Ht 170.2 cm; Wt 90.7 kg
[2021-11-28 08:10] VITALS: BP 110/68
--- NOTE | 2021-11-28 08:13 | NUR ---
Pain Clinic Assessment: 1. History of Osteoarthritis: NECK HANDS History of Rheumatoid Arthritis: Not Applicable 2. Height: 5 ft. 7 in. 170.2 cm. Weight: 200.0 lb. oz. 90.720 kg. Patient's BMI: 31.3 3. Vital Signs: BP: 110/68 Pulse: 70 Resp: 16 Temp: 02 Sat: ECG Mon: 4. Pain Intensity: 4 5. Fall Risk: Dizziness: N Needs help standing or walking: N Fallen in the last 3 months: N Fall risk comments: 6. Patient on Blood Thinner: PLAVIX 7. History of Hypertension: Y 8. Opioid Therapy greater than 6 weeks: Y Opiate Contract Signed: 9. Risk Assessment Tool Provided: LOW RISK 3 10. Functional Assessment Tool: 11. Recreational Drug Use: Never Drug Type: Tobacco Use: Current Every Day Smoker Tobacco Type: Cigarettes Amount or Packs/day: 1/2 PACK How Many Years: Alcohol Use: No Frequency: Quant:
--- NOTE | 2021-11-28 12:13 | HPC ---
[facility] [address] [place] [address] PAIN MANAGEMENT CONSULTATION Name: HEIDE HEARD Room #: REG TONIAShahab Serrano#: [id number] Admission: 11/28/21 Attend Phys: Ferny Menendez DO Discharge: Date of : 53 Report #: [id number] THIS REPORT FOR: cc: Elise Diez Cassandra M. DO Johnson, James E. DO ~ cc: Referring Physician DATE OF SERVICE: 11/28/2021 CHIEF COMPLAINT: Neck pain, bilateral upper extremity pain with paresthesias. HISTORY OF PRESENT ILLNESS: As you know, the patient is a very pleasant 65-year-old male with longstanding history of cervical radiculopathy, which has been well treated with cervical epidural injections under fluoroscopic guidance along with the use of p.r.n. Percocet 5/325 up to 4 times a day. The combination of treatment has provided about 80% improvement in overall pain. He is very pleased with response to treatment and wishing to continue with the therapy. He is denying side effects to the medication including sleepiness, disorientation, confusion, mental slowing or constipation. He indicates that the cervical epidural injections provide excellent benefit allowing him to reduce his reliance on the Percocet. He returns today requesting a cervical epidural injection under fluoroscopic guidance. He denies injury or trauma that may have led to symptom development. He states his symptoms have just began to return spontaneously. He has discontinued his Plavix in preparation for today's procedure 1 week ago. ALLERGIES: SULFA AND ALOE VERA. CURRENT MEDICATIONS: Oxycodone 5/325 one tab every 6 hours p.r.n. for pain, atorvastatin 40 mg per day, ferrous sulfate 325 mg per day, multivitamin 1 tab per day, olmesartan/hydrochlorothiazide 40/12.5 mg once a day, ibuprofen 200 mg 3 times a day, aspirin 81 mg per day, metoprolol 25 mg a day, and Plavix 75 mg once a day. SOCIAL HISTORY: The patient continues to smoke. He is now reporting half pack tobacco per day. He has done this for years. Denies IV or illicit drug use. Denies any chronic alcohol use. He is working, not receiving workmen's compensation, unaccompanied today. IMAGING: No new imaging available. PQRS: The patient has known arthritic changes of cervical spine, bilateral hands. No rheumatoid arthritis. He is placing pain intensity 4/10. He is not a fall risk, has not had a fall in last 3 months. He is on blood thinners in the form of Plavix, but discontinued medication 7 days ago in preparation for today's procedure. He is treated for hypertension. He is on chronic opioids, [facility] [address] [place] [address] PAIN MANAGEMENT CONSULTATION Name: HEIDE HEARD Room #: REG CLShahab Serrano#: [id number] Admission: 11/28/21 Attend Phys: Ferny Menendez DO Discharge: Date of : 53 Report #: [id number] has a low opioid addiction potential based on our assessment tool. Pain impact is 24/70, moderate interference of daily activities secondary to pain. PHYSICAL EXAMINATION: VITAL SIGNS: Blood pressure 110/68, pulse 70, respiratory rate 16 and unlabored. The patient is 99% on room air. Height 5 feet 7 inches tall, weight 200 pounds, BMI calculated 31.3. GENERAL: Well-developed, well-nourished, well-hydrated 65-year-old male appearing stated age, pain is rated today 4/10. HEENT: Normocephalic, atraumatic. Pupils equal, round and responsive. He is wearing a mask in compliance with COVID-19 regulations. EXTREMITIES: Show no clubbing, no cyanosis. No appreciable edema. MUSCULOSKELETAL: Upper extremity strength equal and symmetrical 5/5, intact to light touch from C5 through T1 dermatomes. Deep tendon reflexes are symmetrical in upper extremities, 1+/4 at biceps, brachioradialis and triceps. Muscle bulk and tone is equal and symmetrical. Spurling's test positive. Cervical provocation testing is met with increase in axial neck pain. ASSESSMENT: 1. Cervical radiculopathy. 2. Cervical spondylosis with radiculopathy. 3. Central canal stenosis of the cervical spine. 4. Neural foraminal stenosis of the cervical spine. 5. Facet arthropathy of the cervical spine. PLAN: 1. The patient returns today in followup visit requesting to undergo cervical epidural injection under fluoroscopic guidance. He notes excellent benefit with previous injection up to 80% improvement in overall pain. He has been advised of the risks and the benefits of this procedure, he states he understood and wished to proceed. We reviewed the fact that opiate medications are being used to provide analgesia adequate to support activities of daily living, not attempting to achieve a specific pain score on the 0-10 Visual Analog Scale. The current opiate medications are providing sufficient analgesia to allow the patient to participate in activities of daily living. The patient is not exhibiting any aberrant behavior suggestive of drug diversion. The patient is not having any adverse reactions to medications. The patient is not suffering from daytime somnolence or mental acuity changes. The patient is managing opiate-induced constipation with appropriate [id number] agents and dietary considerations. The patient was counseled on concern for caution with operating a motor vehicle while using opiate medications. A physical exam was performed and the patient's functional status was evaluated. All patients with back pain were advised against the bed rest greater than 4 [facility] [address] [place] [address] PAIN MANAGEMENT CONSULTATION Name: HEIDE HEARD Room #: REG [facility].R.#: [id number] Admission: 11/28/21 Attend Phys: Ferny Menendez DO Discharge: Date of : 53 Report #: [id number] days and were advised to return to normal activities. Pain score assessment was noted and the treatment plan was reviewed with the patient. All current medications, both prescribed and OTC were reviewed and reconciled on the electronic medical record. Tobacco screening was accomplished and smoking cessation was advised when indicated. BMI was noted and diet/exercise modification was recommended for all patients following outside normal parameters. I reviewed with the patient today their responsibilities to safeguard prescription medications, reviewed their responsibility to utilize medications only as prescribed by the physician. They are to seek and receive pain medications only from 1 physician group ( [facility]). They are to use 1 pharmacy and keep the clinic informed if they change pharmacies. Their responsibilities include making followup visits in a timely fashion and to avoid abrupt discontinuation of medication usage. Their responsibilities further include bringing their medications (bottles from the pharmacy with residual pills) to the visit for possible confirmation of pill counts and the patient understands it is their responsibility to submit to random drug screens to ensure both that the medications prescribed are present, and that no other controlled substances are present. All prescriptions provided today were generated electronically. 2. The patient was provided a prescription of Percocet 5/325 one tab every 6 hours p.r.n. for pain. I have given the patient #120 to release today, 4 weeks from today, 8 weeks from today, 3 months' worth of medication. All prescriptions were provided to the patient via e-scribe to local pharmacy. 3. The patient will restart his Plavix today. He continues to have Plavix as directed. He will have to discontinue this medication prior to our next injection. 4. We will see the patient back in followup visit in 3 months for medication management. We will schedule him, also back for a repeat cervical epidural injection on an as needed basis. DESCRIPTION OF PROCEDURE: C7-T1 cervical epidural steroid injection under fluoroscopic guidance. After obtaining written consent, the patient was taken back to fluoroscopy suite, placed in prone position with separate pillows under chest and forehead to decrease cervical lordosis. Skin overlying cervical area then prepped and draped in aseptic fashion. C7-T1 cervical interspace identified by AP fluoroscopy. Skin and subcutaneous tissue overlying target site injection anesthetized with 3 mL of 1% lidocaine. A 20 gauge 3-1/2 inch Tuohy needle advanced under fluoroscopic guidance towards the epidural space using a midline approach. Epidural space identified using loss of resistance to air technique. After negative aspiration for heme or [facility] [address] [place] [address] PAIN MANAGEMENT CONSULTATION Name: HEARDHEIDE Room #: REG NARINDER Serrano#: [id number] Admission: 11/28/21 Attend Phys: Ferny Menendez DO Discharge: Date of : 53 Report #: [id number] cerebrospinal fluid, 1 mL of Omnipaque injected. A cervical epidurogram was confirmed using both AP and oblique fluoroscopy. After negative aspiration for heme or cerebrospinal fluid, 5 mL of a solution containing 2 mL 40 mg per mL 80 mg total triamcinolone along with 3 mL of lidocaine, 1% injected slowly. Needle retracted correction flushed with 1 mL of 1% lidocaine and removed. Sterile bandage placed over injection site. No new motor deficits present in the upper extremities following procedure. The patient tolerated the procedure well, carefully escorted to recovery room in stable condition. No apparent complications. After meeting discharge criteria, the patient discharged home. <ELECTRONICALLY SIGNED> By: Ferny Menendez DO 11/28/21 1213 [id number] [id number] Ferny Menendez DO /nt
== END | disposition home or self-care (01) ==
LOC: PAIN 06:55
PROVIDERS: ATTEND Anesthesiology Pain Medicine
DX: M47.22 Other spondylosis with radiculopathy, cervical region (principal); M48.02 Spinal stenosis, cervical region; I10 Essential (primary) hypertension; M19.90 Unspecified osteoarthritis, unspecified site; F17.210 Nicotine dependence, cigarettes, uncomplicated; Z88.2 Allergy status to sulfonamides; Z98.890 Other specified postprocedural states; Z79.899 Other long term (current) drug therapy

== ENCOUNTER → 2022-01-23 | Outpatient (CLI) | payer OTHER ==
[~2022-01-23] VITALS: Ht 170.2 cm; Wt 90.3 kg
[~2022-01-23] MED LIST changes: +OXYCODONE-APAP1 EAC4 PO
[2022-01-23 08:42] VITALS: BP 133/72
--- NOTE | 2022-01-23 08:45 | NUR ---
Pain Clinic Assessment: 1. History of Osteoarthritis: NECK HANDS History of Rheumatoid Arthritis: Not Applicable 2. Height: 5 ft. 7 in. 170.2 cm. Weight: 199.0 lb. oz. 90.266 kg. Patient's BMI: 31.2 3. Vital Signs: BP: 133/72 Pulse: 84 Resp: 18 Temp: 02 Sat: 96 ECG Mon: 4. Pain Intensity: 5 5. Fall Risk: Dizziness: N Needs help standing or walking: N Fallen in the last 3 months: N Fall risk comments: 6. Patient on Blood Thinner: PLAVIX 7. History of Hypertension: Y 8. Opioid Therapy greater than 6 weeks: Y Opiate Contract Signed: 9. Risk Assessment Tool Provided: LOW RISK 3 10. Functional Assessment Tool: 11. Recreational Drug Use: Never Drug Type: Tobacco Use: Current Every Day Smoker Tobacco Type: Cigarettes Amount or Packs/day: 1 PACK How Many Years: Alcohol Use: No Frequency: Quant:
== END ==
LOC: PAIN 07:44
PROVIDERS: ATTEND Clinical Nurse Specialist Adult Health
DX: M47.22 Other spondylosis with radiculopathy, cervical region (principal); M48.02 Spinal stenosis, cervical region; M46.92 Unspecified inflammatory spondylopathy, cervical region; Z79.899 Other long term (current) drug therapy; Z88.8 Allergy status to other drugs, medicaments and biological substances